=== PATIENT | female | born 1950 | race Caucasian/White ===

== ENCOUNTER 2017-06-14 07:01 | Day surgery (SDC) | payer BC, MEDICARE ==
[2017-06-07 09:00] VITALS: BMI 29.2
[~2017-06-14 07:01] MED LIST: LACTATED RINGERS 1,000 ML IV SCH; LIDOCAINE 1% 20 ML VIAL (10MG/ML) FOR IV START INTRADERMA PRN; MOXIFLOXACIN HCL 0.5% DROPS 3 ML BTL OP ONE; TETRACAINE 0.5% OPHTH (PF) DROPS 4 ML BTL OP ONE; TIMOLOL 0.5% OPHTH SOLN (PF) 0.2 ML DROPERETTE OP ONE
[2017-06-14] MEDS: CYCLOPENTOLATE 1% OPHTH SOLN 2 ML BTL OP ONE ×3 (07:27→07:40)
[2017-06-14] MEDS: PHENYLEPHRINE 2.5% OPHTH DRP 2ML OP NR ×3 (07:30→07:43)
[2017-06-14 07:31] VITALS: RESP 18; TEMP 98
[2017-06-14] MEDS ORDERED: BALANCED SALT IRRIG SOLN COMB2 15 ML IRRIG.SOLN INTRAOCULA ONE (08:15)
[2017-06-14] MEDS ORDERED: LIDOCAINE 1% (PF) 10MG/ML VIAL MISCELLANE ONE (08:15)
[2017-06-14] MEDS ORDERED: fentaNYL (PF) 50 MCG/ML 2 ML AMP ONE (08:22)
[2017-06-14] MEDS ORDERED: MIDAZOLAM 2 MG/2 ML VIAL ONE (08:22)
[2017-06-14] MEDS ORDERED: DUOVISC KIT (GREEN BOX) INTRAOCULA ONE (08:31)
[2017-06-14] MEDS ORDERED: EPINEPHrine (PF) 0.3 ML in BALANCED SALT IRRIG SOLN COMB2 500 ML IRRIGATION ONE (08:34)
--- NOTE | 2017-06-14 08:46 | P.OP ---
Date of Procedure: 06/14/17 Preoperative Diagnosis: NS & CS Postoperative Diagnosis: same Procedure(s) Performed: PIOL, OD Implants: PCB00 23.00 Anesthesia: MAC Surgeon: Rubén Sepulveda Estimated Blood Loss (ml): 0 Pathology: none sent Condition: stable Disposition: same day Indications for Procedure: blurry vision Operative Findings: no complications Description of Procedure:
[2017-06-14 09:15] VITALS: BP 117/75; PULSE 56
--- NOTE | 2017-06-15 09:59 | OP ---
DATE OF SERVICE: 06/14/2017 PROCEDURE: Phacoemulsification of cataract and intraocular lens implant of the right eye. PREOPERATIVE DIAGNOSIS: Nuclear sclerosis, cortical sclerosis. NARRATIVE: After obtaining the appropriate consent, the patient was brought to the Operating Room where the patient was placed under cardiac monitoring and prepped and draped in the usual sterile manner. At the 11 oclock position a 15 degree super sharp blade was used to create a paracentesis followed by instillation of 1% Xylocaine MPF 50:50 mix with BSS into the anterior chamber. This was followed by to stabilize the anterior chamber. At the 9 oclock position a self-sealing corneal flap incision was created using 2.8 mm marko keratome. A cystatome was used to initiate a continuous tear capsulorrhexis which was completed with the Utrata forceps. A Binkhorst cannula was used to hydrodissect the lens nucleus followed by hydrodelineation. Phacoemulsification of the lens was performed utilizing phacochop in 9.2 seconds at 14% power. The remaining cortical material was removed using the irrigation aspiration mode followed by additional 1% Xylocaine MPF into the anterior chamber followed by Duovisc viscoelastic to stabilize the capsular bag. An [id number] 23.0 Diopters posterior chamber lens was placed into the capsular bag without difficulty. The remaining viscoelastic material was removed from the anterior chamber with the irrigation/aspiration. Balanced salt solution was used to normalize the intraocular pressure. The incision was checked for watertight integrity. The patient then received two drops of 0.5% timolol followed by two drops Vigamox, was lightly patched and shielded in the usual manner. There were no complications from the procedure. The patient tolerated the procedure well and was returned to recovery in good condition. JOE
== END 2017-06-14 09:34 | disposition home or self-care (01) ==
LOC: OR 07:01
PROVIDERS: ATTEND Ophthalmology
DX: H25.11 Age-related nuclear cataract, right eye (principal); H25.011 Cortical age-related cataract, right eye; H52.03 Hypermetropia, bilateral; H52.223 Regular astigmatism, bilateral; H52.4 Presbyopia; I10 Essential (primary) hypertension; J45.909 Unspecified asthma, uncomplicated; Z85.07 Personal history of malignant neoplasm of pancreas
CPT/HCPCS: 66984; C1780; J2250; J0171; J3010; J2001

== ENCOUNTER 2017-07-05 09:12 | Day surgery (SDC) | payer MEDICARE ==
[2017-06-30 10:42] VITALS: BMI 29.2
[~2017-07-05 09:12] MED LIST changes: -LIDOCAINE 1% 20 ML VIAL (10MG/ML) FOR IV START INTRADERMA PRN
[2017-07-05] MEDS: CYCLOPENTOLATE 1% OPHTH SOLN 2 ML BTL OP ONE ×3 (10:10→10:22)
[2017-07-05] MEDS: PHENYLEPHRINE 2.5% OPHTH DRP 2ML OP NR ×3 (10:13→10:25)
[2017-07-05 10:42] VITALS: RESP 18; TEMP 98.8
[2017-07-05] MEDS ORDERED: fentaNYL (PF) 50 MCG/ML 2 ML AMP ONE (11:07)
[2017-07-05] MEDS ORDERED: MIDAZOLAM 2 MG/2 ML VIAL ONE (11:07)
[2017-07-05] MEDS ORDERED: EPINEPHrine (PF) 0.3 ML in BALANCED SALT IRRIG SOLN COMB2 500 ML IRRIGATION ONE (11:08)
[2017-07-05] MEDS ORDERED: HYALURONATE SODIUM INTRAOCULAR 1 EACH SYRINGE (12MG/ML) INTRAOCULA ONE (11:10)
[2017-07-05] MEDS ORDERED: BALANCED SALT IRRIG SOLN COMB2 15 ML IRRIG.SOLN INTRAOCULA ONE (11:10)
[2017-07-05] MEDS ORDERED: LIDOCAINE 1% (PF) 10MG/ML VIAL MISCELLANE ONE (11:11)
[2017-07-05] MEDS ORDERED: DUOVISC KIT (GREEN BOX) INTRAOCULA ONE (11:18)
[2017-07-05] MEDS ORDERED: FLUORESCEIN STRIPS 1 MG STRIP LEFT EYE ONE (11:29)
--- NOTE | 2017-07-05 11:39 | P.OP ---
Date of Procedure: 07/05/17 Preoperative Diagnosis: NS & CS Postoperative Diagnosis: same Procedure(s) Performed: PIOL, OS Implants: PCB00 23.50 Anesthesia: MAC Surgeon: Rubén Sepulveda Estimated Blood Loss (ml): 0 Pathology: none sent Condition: stable Disposition: same day Indications for Procedure: blurry vision Operative Findings: No complications Description of Procedure:
[2017-07-05 11:57] VITALS: BP 123/77; PULSE 65
--- NOTE | 2017-07-06 14:02 | OP ---
OPERATIVE REPORT Date of Surgery: DATE OF SURGERY: 05 July 2017 [employer]:: PREOPERATIVE DIAGNOSES:: 1. Nuclear sclerosis. 2. Cortical sclerosis. POSTOPERATIVE DIAGNOSIS:: Same. OPERATION:: Phacoemulsification of cataract and intraocular lens implant to the left eye. ESTIMATED BLOOD LOSS:: Zero. SPECIMEN TAKEN:: None. NARRATIVE:: After obtaining the appropriate consent, the patient was brought to the Operating Room where the patient was placed under cardiac monitoring and prepped and draped in the usual sterile manner. At the 5 o'clock position, a 15 degree super sharp blade was used to create a paracentesis followed by instillation of 1% Xylocaine MPF 50:50 mix with BSS into the anterior chamber. This was followed by Duovisc to stabilize the anterior chamber. At the 3 o'clock position, a self-sealing corneal flap incision was created using 2.8 mm marko keratome. A cystatome was used to initiate a continuous tear capsulorrhexis which was completed with the Utrata forceps. A Binkhorst cannula was used to hydrodissect the lens nucleus followed by hydrodelineation. Phacoemulsification of the lens was performed utilizing phacochop in 4.86 seconds at 9% power. The remaining cortical material was removed using the irrigation aspiration mode followed by additional 1% Xylocaine MPF into the anterior chamber followed by viscoelastic to stabilize the capsular bag. An TAINA PCB00 23.5 diopter posterior chamber lens was placed into the capsular bag without difficulty. The remaining viscoelastic material was removed from the anterior chamber with the irrigation/aspiration. Balanced salt solution was used to normalize the intraocular pressure. The incision was checked for watertight integrity. The patient then received two drops of 0.5% timolol followed by two drops Vigamox, was lightly patched and shielded in the usual manner. There were no complications from the procedure. The patient tolerated the procedure well and was returned to recovery in good condition. MMODL / IJN: [id number] /
== END 2017-07-05 12:14 | disposition home or self-care (01) ==
LOC: OR 09:12
PROVIDERS: ATTEND Ophthalmology
DX: H25.12 Age-related nuclear cataract, left eye (principal); H25.012 Cortical age-related cataract, left eye; H18.51 Endothelial corneal dystrophy; H52.03 Hypermetropia, bilateral; H52.223 Regular astigmatism, bilateral; H52.4 Presbyopia; Z96.1 Presence of intraocular lens; Z98.41 Cataract extraction status, right eye; I10 Essential (primary) hypertension; K21.9 Gastro-esophageal reflux disease without esophagitis; F32.9 Major depressive disorder, single episode, unspecified; J44.9 Chronic obstructive pulmonary disease, unspecified; Z87.891 Personal history of nicotine dependence; Z86.718 Personal history of other venous thrombosis and embolism; F39 Unspecified mood [affective] disorder; Z79.51 Long term (current) use of inhaled steroids; Z79.52 Long term (current) use of systemic steroids; Z79.899 Other long term (current) drug therapy; Z88.8 Allergy status to other drugs, medicaments and biological substances

== ENCOUNTER 2017-11-29 11:29 | Emergency (ER) | payer MEDICARE ==
--- NOTE | 2017-11-29 13:45 | ED ---
Fall HPI - General Chief Complaint: Fall Stated Complaint: FALL, HEAD AND ARM INJURY Time Seen by Provider: 11/29/17 13:09 Source: patient, RN notes reviewed Mode of arrival: ambulatory Limitations: no limitations - History of Present Illness Initial Comments: This is a 67 year old female who presents with a chief complaint of falling which resulted in hitting her head and right arm. The patient states she fell backward on a patch of ice and briefly saw "black dots" for a few seconds after the fall. She denies any bleeding, loss of consciousness, abrasions, or pain located elsewhere throughout the body. She states the pain is worse in her right arm when she moves it upward. At rest, the patient states her pain is 3/ 10. - Related Data Home Medications Medication Instructions Recorded Confirmed ALPRAZolam [Xanax] 0.25 mg PO DAILY PRN 06/07/17 11/29/17 Beclomethasone Dip 80 Mcg/Puff 2 puff INHALATION QAM 06/07/17 11/29/17 [Qvar 80 mcg] Cholecalciferol [Vitamin D3] 1,000 unit PO DAILY 06/07/17 11/29/17 Ibuprofen [Motrin] 600 mg PO Q6HR PRN 06/07/17 11/29/17 Losartan Potassium [Losartan 25 mg PO QAM 06/07/17 11/29/17 Potassium] Montelukast Sodium [Singulair] 10 mg PO QAM 06/07/17 11/29/17 Vitamin B Complex 1 each PO DAILY 06/07/17 11/29/17 diphenhydrAMINE [Benadryl] 12.5 - 25 mg PO HS PRN 06/30/17 11/29/17 Allergies Allergy/AdvReac Type Severity Reaction Status Date / Time meperidine [From Demerol] AdvReac Nausea & Verified 11/29/17 12:18 Vomiting theophylline AdvReac Rapid Verified 11/29/17 12:18 Heart Rate,N/V,headache Review of Systems ROS Statement: Those systems with pertinent positive or pertinent negative responses have been documented in the HPI. ROS Other: All systems not noted in ROS Statement are negative. Past Medical History Past Medical History: Asthma, Cancer, Deep Vein Thrombosis (DVT), Eye Disorder, GERD/Reflux, Hypertension Additional Past Medical History / Comment(s): Cataracts LT eye. Hx bronchitis. IBS. 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 History of Any Multi-Drug Resistant Organisms: None Reported Past Surgical History: Bladder Surgery, Section, Cholecystectomy, Hernia Repair Additional Past Surgical History / Comment(s): Bladder sling ,c sect x 3, ventral hernia repairs x 3, sinus surg, distal pancreatectomy and spleenectomy. EXC RT EYE CATARACT 06/14/17 Past Anesthesia/Blood Transfusion Reactions: Previous Problems w/ Anesthesia, Family History of Problems w/ Anesthesia Additional Past Anesthesia/Blood Transfusion Reaction / Comment(s): Sister N/V. ITCHING AND RASH AFTER EYE SURG 06/14/17 Past Psychological History: Anxiety, Depression Smoking Status: Former smoker Past Alcohol Use History: Rare Past Drug Use History: None Reported - Past Family History Mother Additional Family Medical History / Comment(s): heart valve disease- at age 75 Father Family Medical History: Cancer Additional Family Medical History / Comment(s): prostate CA- at age 65 General Exam Limitations: no limitations General appearance: alert, in no apparent distress Head exam: Present: atraumatic, normocephalic, normal inspection Eye exam: Present: normal appearance, PERRL, EOMI. Absent: scleral icterus, conjunctival injection, periorbital swelling Pupils: Present: normal accommodation Neck exam: Present: normal inspection. Absent: tenderness, meningismus, lymphadenopathy Extremities exam: Present: normal inspection (Tenderness in the right shoulder with active and resistive abduction. Neurovascular intact.), full ROM, normal capillary refill, other (Tenderness in the right shoulder with active and resistive abduction. Neurovascular intact.). Absent: tenderness, pedal edema, joint swelling, calf tenderness Back exam: Present: normal inspection Neurological exam: Present: alert, oriented X3, CN II-XII intact Psychiatric exam: Present: normal affect, normal mood Skin exam: Present: warm, dry, intact, normal color. Absent: rash Course Vital Signs 11/29/17 12:15 Temperature 97.5 F L Pulse Rate 82 Respiratory 18 Rate Blood Pressure 133/73 O2 Sat by Pulse 95 Oximetry Medical Decision Making - Medical Decision Making 67-year-old female presented for fall, head injury, right arm shoulder injury. Patient CT, x-rays were reviewed by radiologist no acute abnormality. Patient does have some discomfort with range of motion especially of both shoulder height the right. We discussed possibility of right rotator cuff strain. Patient will follow-up with primary care physician and or orthopedics if needed. Patient will take ibuprofen at home she was offered further pain medication though she declined. Disposition Clinical Impression: Fall, Head injury, Sprain of right rotator cuff capsule, initial encounter Disposition: HOME SELF-CARE Condition: Stable Instructions: Head Injury (ED) Additional Instructions: Please return to the Emergency Department if symptoms worsen or any other concerns. Referrals: Hayden Aviles MD [Primary Care Provider] - 1-2 days Michael Holguin MD [STAFF PHYSICIAN] - 1-2 days Time of Disposition: 14:42
--- NOTE | 2017-11-29 14:35 | XR ---
Right shoulder HISTORY: Pain 3 views of the right shoulder, comparison to prior exam 12/27/2011 Arthropathy present at the acromioclavicular joint. Alignment and bone mineralization are stable. Mil d spurring at the glenohumeral joint. Right lung apex as visualized is unremarkable. No fracture or d islocation. IMPRESSION: No acute fracture or dislocation
[2017-11-29 14:51] VITALS: BP 145/80; PULSE 81; RESP 20; TEMP 98
--- NOTE | 2017-11-29 15:35 | CT ---
EXAMINATION TYPE: CT brain erlin jo con DATE OF EXAM: 11/29/2017 COMPARISON: CT brain December 27, 2011 HISTORY: Patient fell today and hit back of head. Patient complains of posterior head pain. CT DLP: 1486 mGycm. Automated Exposure Control for Dose Reduction was Utilized. TECHNIQUE: CT scan of the head and cervical spine are performed without contrast. FINDINGS: There is no acute intracranial hemorrhage or midline shift identified. There is ventricul ar and sulcal prominence consistent with diffuse age-related cerebral atrophy. Slightly more prominen t CSF left of midline axial image 12 and coronal image 53 could reflect small arachnoid cyst in the p osterior fossa is unchanged from prior. The calvarium is intact. The globes are intact and the visual ized sinuses are clear. Cervical spine is visualized in its entirety from C1 through upper thoracic levels and demonstrates s traightened alignment without evidence of acute fracture or dislocation. Prevertebral soft tissue ap pears within normal limits. The C1-C2 articulation is within normal limits on the coronal images. Vertebral body heights are maintained. There is moderate to severe spurring and disc space narrowing C5-C6 and C6-C7 levels with posterior spur disc complexes effacing anterior thecal sac on sagittal im ages. Review of axial images shows left-sided uncovertebral facet degenerative changes C2-C3 and righ t-sided changes C4-C5. There is marginal spurring contributing to moderate left-sided neural foramina l narrowing C5-C6 level. Lung apices show mild apical scarring. Thyroid gland is not included in fiel d-of-view. IMPRESSION: 1. There is no acute fracture or dislocation evident in the cervical spine. 2. No acute intracranial hemorrhage or midline shift is seen. New mild diffuse age-related cerebral a trophy otherwise no significant change from prior.
== END 2017-11-29 14:49 | disposition home or self-care (01) ==
LOC: EC 11:29
DX: S43.421A Sprain of right rotator cuff capsule, initial encounter (principal); S09.90XA Unspecified injury of head, initial encounter; J45.909 Unspecified asthma, uncomplicated; I10 Essential (primary) hypertension; Z87.891 Personal history of nicotine dependence; Z85.07 Personal history of malignant neoplasm of pancreas; Z79.899 Other long term (current) drug therapy; Z79.51 Long term (current) use of inhaled steroids; Z88.5 Allergy status to narcotic agent; Z88.8 Allergy status to other drugs, medicaments and biological substances; W00.0XXA Fall on same level due to ice and snow, initial encounter; Y93.01 Activity, walking, marching and hiking; Y92.89 Other specified places as the place of occurrence of the external cause
CPT/HCPCS: 70450; 72125; 99284

== ENCOUNTER → 2018-01-02 | Outpatient (CLI) | payer MEDICARE ==
--- NOTE | 2018-01-03 11:16 | MM ---
Reason for exam: screening (asymptomatic). Last mammogram was performed 1 year and 11 months ago. History: Patient is postmenopausal and history of other cancer. Benign cyst aspiration of the right breast, 1992. Took hormonal contraceptives for 3 years beginning at age 26. Took estrogen for 3 months beginning at age 52. Physical Findings: A clinical breast exam by your physician is recommended on an annual basis and results should be correlated with mammographic findings. MG 3D Screening Mammo W/Cad Bilateral CC and MLO view(s) were taken. Prior study comparison: February 02, 2016, bilateral MG screening mammo w CAD. January 30, 2015, bilateral MG screening mammo w CAD. The breast tissue is heterogeneously dense. This may lower the sensitivity of mammography. Stable benign calcifications. There is no discrete abnormality. No significant changes when compared with prior studies. ASSESSMENT: Benign, BI-RAD 2 RECOMMENDATION: Routine screening mammogram of both breasts in 1 year.
== END | disposition home or self-care (01) ==
LOC: RADMAMWWP 10:40
PROVIDERS: ATTEND Internal Medicine
DX: Z12.31 Encounter for screening mammogram for malignant neoplasm of breast (principal)
CPT/HCPCS: 77063; 77067

== ENCOUNTER → 2018-05-22 | Outpatient (CLI) | payer MEDICARE ==
[2018-05-22 13:16] LABS: C Reactive Protein 6.8 mg/L (<10.0); Uric Acid 2.8 mg/dL (3.7-7.4)
[2018-05-22 17:59] LABS: Rheumatoid Factor 219 IU/mL (0-15)
[2018-05-22 19:16] LABS: Cyclic Citrullinated Pep IgG POSITIVE (NEGATIVE)
== END | disposition home or self-care (01) ==
LOC: LABWHC1 11:44
PROVIDERS: ATTEND Internal Medicine
DX: M19.90 Unspecified osteoarthritis, unspecified site (principal)
CPT/HCPCS: 36415; 84550; 85652; 86140; 86200; 86431; 86618

== ENCOUNTER → 2018-11-26 | Outpatient (CLI) | payer MEDICARE ==
--- NOTE | 2018-11-26 18:24 | BD ---
EXAMINATION TYPE: Axial Bone Density DATE OF EXAM: 11/26/2018 COMPARISON: NONE CLINICAL HISTORY: 68-year-old female screening for osteoporosis Height: 5 FT 4 IN Weight: 163 FRAX RISK QUESTIONS: History of Fracture in Adulthood: YES Secondary Osteoporosis: Rheumatoid Arthritis: YES RISK FACTORS HISTORY OF: Active: YES Postmenopausal woman: AGE 49-50 Take estrogen and/or progesterone medications: VERY BRIEFLY MEDICATIONS: Prednisone or other steroids: FOR ASTHMA How Lon MONTHS Additional Medications: SINGULAIR, LOSARTIN, CYMBALTA,QVAR INHALER, IBUPROFEN, METHOTREXATE, ALBUTERO L PRN,UPDRAFTS PRN, FOLIC ACID Additional History: EXAM MEASUREMENTS: Bone mineral densitometry was performed using the [employer]. Bone mineral density as measured about the Lumbar spine is: ----- L1-L4(G/cm2): 1.170 T Score Values are as follows: ----- L2: 0.3 ----- L3: 0.0 ----- L4: -0.6 ----- L1-L4: -0.1 Bone mineral density has: INCREASED 3.6 % SINCE STUDY OF 2015 Bone mineral density about the R hip (g/cm2): 0.855 Bone mineral density about the L hip (g/cm2): 0.901 T Score values are as follows: -----R Neck: -1.3 -----L Neck: -1.0 -----R Total: -0.5 -----L Total: -0.6 Bone mineral density has: INCREASED 0.9% SINCE STUDY OF 2015 IMPRESSION: Osteopenia (T Score between -2.5 and -1). There is slightly increased risk of fracture and the patient may be considered for treatment. Re-Screen 2-5 years. NOTE: T-SCORE=SD OF THE YOUNG ADULT MEAN.
== END ==
LOC: RADBDWWP 12:58
PROVIDERS: ATTEND Internal Medicine Rheumatology
DX: M85.80 Other specified disorders of bone density and structure, unspecified site (principal)
CPT/HCPCS: 77080

== ENCOUNTER 2019-06-07 18:22 | Emergency (ER) | payer MEDICARE ==
[2019-06-07] MEDS ORDERED: SODIUM CHLORIDE 0.9% 1,000 ML IV STA (18:55)
--- NOTE | 2019-06-07 19:04 | ED ---
General Adult HPI - General Chief complaint: Dizziness Stated complaint: lightheaded/nausea/jaw pain Time Seen by Provider: 06/07/19 18:46 Source: patient Mode of arrival: ambulatory Limitations: no limitations - History of Present Illness Initial comments: 69-year-old female patient presents to the emergency department today for evaluation of multiple symptoms. Patient states she has been experiencing fatigue, dizziness, intermittent chest tightness, and nausea. Patient states his been going on for the last couple of weeks. She states that all symptoms are intermittent however the fatigue seems to be the most pressing. States that she could sleep all day. Patient did start taking Keppra in April and was concerned it may be a side effect of the medication but nothing seemed to be worsening. Patient states 5 episodes where she feels like her heart is pounding. States that her chest becomes tight, tenderness or radiate up into her neck and jaw. Patient states that she has intermittent nausea but she is able to eat. States that she has decreased appetite. Patient does report diarrhea on a daily basis. States she has 2-3 episodes per day. Denies any hematochezia or melena. She is reporting intermittent mild headaches and blurred vision. There are no exacerbating or relieving factors to her symptoms. Patient denies any recent rash, fever, chills, vomiting, diarrhea, back pain, numbness, tingling, hematuria, dysuria, urinary urgency, urinary frequency, or any other complaints. - Related Data Home Medications Medication Instructions Recorded Confirmed ALPRAZolam [Xanax] 0.25 mg PO DAILY PRN 06/07/17 11/29/17 Beclomethasone Dip 80 Mcg/Puff 2 puff INHALATION QAM 06/07/17 11/29/17 [Qvar 80 mcg] Cholecalciferol [Vitamin D3] 1,000 unit PO DAILY 06/07/17 11/29/17 Ibuprofen [Motrin] 600 mg PO Q6HR PRN 06/07/17 11/29/17 Losartan Potassium 25 mg PO QAM 06/07/17 11/29/17 Montelukast Sodium [Singulair] 10 mg PO QAM 06/07/17 11/29/17 Vitamin B Complex 1 each PO DAILY 06/07/17 11/29/17 diphenhydrAMINE [Benadryl] 12.5 - 25 mg PO HS PRN 06/30/17 11/29/17 Allergies Allergy/AdvReac Type Severity Reaction Status Date / Time meperidine [From Demerol] AdvReac Nausea & Verified 06/07/19 18:37 Vomiting theophylline AdvReac Rapid Verified 06/07/19 18:37 Heart Rate,N/V,headache Review of Systems ROS Statement: Those systems with pertinent positive or pertinent negative responses have been documented in the HPI. ROS Other: All systems not noted in ROS Statement are negative. Past Medical History Past Medical History: Asthma, Cancer, Deep Vein Thrombosis (DVT), Eye Disorder, GERD/Reflux, Hypertension, Rheumatoid Arthritis (RA), Seizure Disorder Additional Past Medical History / Comment(s): Cataracts LT eye. Hx bronchitis. IBS. 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 History of Any Multi-Drug Resistant Organisms: None Reported Past Surgical History: Bladder Surgery, Section, Cholecystectomy, Hernia Repair Additional Past Surgical History / Comment(s): Bladder sling ,c sect x 3, ventral hernia repairs x 3, sinus surg, distal pancreatectomy and spleenectomy. EXC RT EYE CATARACT 06/14/17 Past Anesthesia/Blood Transfusion Reactions: Previous Problems w/ Anesthesia, Family History of Problems w/ Anesthesia Additional Past Anesthesia/Blood Transfusion Reaction / Comment(s): Sister N/V. ITCHING AND RASH AFTER EYE SURG 06/14/17 Past Psychological History: Anxiety, Depression Smoking Status: Former smoker Past Alcohol Use History: Rare Past Drug Use History: None Reported - Past Family History Mother Additional Family Medical History / Comment(s): heart valve disease- at age 75 Father Family Medical History: Cancer Additional Family Medical History / Comment(s): prostate CA- at age 65 General Exam Limitations: no limitations General appearance: alert, other (Physical well-developed, well-nourished adult female patient in no acute distress. Vital signs upon presentation are temperature 98.7F, pulse 89, respirations 18, blood pressure 121/76, pulse ox 96% on room air.) Eye exam: Present: normal appearance, PERRL, EOMI. Absent: scleral icterus, conjunctival injection, nystagmus, periorbital swelling ENT exam: Present: normal exam, normal oropharynx, mucous membranes moist Respiratory exam: Present: normal lung sounds bilaterally. Absent: respiratory distress, wheezes, rales, rhonchi, stridor Cardiovascular Exam: Present: regular rate, normal rhythm, normal heart sounds. Absent: systolic murmur, diastolic murmur, rubs, gallop, clicks GI/Abdominal exam: Present: soft, normal bowel sounds. Absent: distended, tenderness, guarding, rebound, rigid Neurological exam: Present: alert, oriented X3, CN II-XII intact, other (Strength in all 4 extremities is 5/5.) Psychiatric exam: Present: normal affect, normal mood Skin exam: Present: warm, dry, intact, normal color. Absent: rash Course Vital Signs 06/07/19 06/07/19 06/07/19 18:37 19:30 21:00 Temperature 98.7 F Pulse Rate 89 75 76 Respiratory 18 18 19 Rate Blood Pressure 121/76 125/84 128/91 O2 Sat by Pulse 96 94 L 94 L Oximetry 06/07/19 22:24 Temperature 98.3 F Pulse Rate 77 Respiratory 18 Rate Blood Pressure 133/90 O2 Sat by Pulse 95 Oximetry EKG Findings - EKG Comments: EKG Findings:: EKG obtained in 191 shows normal sinus rhythm with a ventricular rate is 77, UT interval 152, QRS duration 90, QT 370, QTC 418. No evidence of ST elevation or depression Medical Decision Making - Medical Decision Making 69-year-old female patient percents into the emergency department today for evaluation of intermittent chest tightness, dizziness, and fatigue over the last 2-3 weeks. Physical examination is unremarkable. She is neurologically intact with no focal deficits. She denied urinary symptoms. Labs reviewed and did reveal elevated BUN at 20. Elevated TSH of 5.040, urinalysis shows trace protein, moderate leukocyte esterase, 13 white blood cells, and rare mucous. This has been sent for culture. Chest x-ray showed atelectasis. I did discuss findings and results with the patient's. Given duration of symptoms and relatively unremarkable lab findings we'll discharge patient home to follow-up with her primary care physician. She should follow-up in one to 2 days. Return parameters were discussed in detail. She verbalizes understanding and agrees with this plan. - Lab Data Result diagrams: 06/07/19 19:47 06/07/19 19:47 Lab Results 06/07/19 06/07/19 06/07/19 Range/Units 19:47 19:47 19:47 WBC 8.7 (3.8-10.6) k/uL RBC 4.69 (3.80-5.40) m/uL Hgb 14.2 (11.4-16.0) gm/dL Hct 43.3 (34.0-46.0) % MCV 92.5 (80.0-100.0) fL MCH 30.3 (25.0-35.0) pg MCHC 32.8 (31.0-37.0) g/dL RDW 15.3 (11.5-15.5) % Plt Count 451 H (150-450) k/uL Neutrophils % 39 % Lymphocytes % 49 % Monocytes % 5 % Eosinophils % 4 % Basophils % 1 % Neutrophils # 3.4 (1.3-7.7) k/uL Lymphocytes # 4.3 (1.0-4.8) k/uL Monocytes # 0.4 (0-1.0) k/uL Eosinophils # 0.3 (0-0.7) k/uL Basophils # 0.1 (0-0.2) k/uL Sodium 138 (137-145) mmol/L Potassium 4.4 (3.5-5.1) mmol/L Chloride 103 (98-107) mmol/L Carbon Dioxide 26 (22-30) mmol/L Anion Gap 9 mmol/L BUN 20 H (7-17) mg/dL Creatinine 0.49 L (0.52-1.04) mg/dL Est GFR (CKD-EPI)AfAm >90 (>60 ml/min/1.73 sqM) Est GFR (CKD-EPI)NonAf >90 (>60 ml/min/1.73 sqM) Glucose 96 (74-99) mg/dL Calcium 9.5 (8.4-10.2) mg/dL Magnesium 2.2 (1.6-2.3) mg/dL Total Bilirubin 0.6 (0.2-1.3) mg/dL AST 26 (14-36) U/L ALT 21 (9-52) U/L Alkaline Phosphatase 66 (38-126) U/L Troponin I <0.012 (0.000-0.034) ng/mL Total Protein 7.1 (6.3-8.2) g/dL Albumin 4.2 (3.5-5.0) g/dL TSH 5.040 H (0.465-4.680) mIU/L Free T4 0.88 (0.78-2.19) ng/dL Urine Color Urine Appearance (Clear) Urine pH (5.0-8.0) Ur Specific [place] (1.001-1.035) Urine Protein (Negative) Urine Glucose (UA) (Negative) Urine Ketones (Negative) Urine Blood (Negative) Urine Nitrite (Negative) Urine Bilirubin (Negative) Urine Urobilinogen (<2.0) mg/dL Ur Leukocyte Esterase (Negative) Urine RBC (0-5) /hpf Urine WBC (0-5) /hpf Ur Squamous Epith Cells (0-4) /hpf Urine Mucus (None) /hpf 06/07/19 Range/Units 20:29 WBC (3.8-10.6) k/uL RBC (3.80-5.40) m/uL Hgb (11.4-16.0) gm/dL Hct (34.0-46.0) % MCV (80.0-100.0) fL MCH (25.0-35.0) pg MCHC (31.0-37.0) g/dL RDW (11.5-15.5) % Plt Count (150-450) k/uL Neutrophils % % Lymphocytes % % Monocytes % % Eosinophils % % Basophils % % Neutrophils # (1.3-7.7) k/uL Lymphocytes # (1.0-4.8) k/uL Monocytes # (0-1.0) k/uL Eosinophils # (0-0.7) k/uL Basophils # (0-0.2) k/uL Sodium (137-145) mmol/L Potassium (3.5-5.1) mmol/L Chloride (98-107) mmol/L Carbon Dioxide (22-30) mmol/L Anion Gap mmol/L BUN (7-17) mg/dL Creatinine (0.52-1.04) mg/dL Est GFR (CKD-EPI)AfAm (>60 ml/min/1.73 sqM) Est GFR (CKD-EPI)NonAf (>60 ml/min/1.73 sqM) Glucose (74-99) mg/dL Calcium (8.4-10.2) mg/dL Magnesium (1.6-2.3) mg/dL Total Bilirubin (0.2-1.3) mg/dL AST (14-36) U/L ALT (9-52) U/L Alkaline Phosphatase (38-126) U/L Troponin I (0.000-0.034) ng/mL Total Protein (6.3-8.2) g/dL Albumin (3.5-5.0) g/dL TSH (0.465-4.680) mIU/L Free T4 (0.78-2.19) ng/dL Urine Color Yellow Urine Appearance Clear (Clear) Urine pH 7.0 (5.0-8.0) Ur Specific [place] 1.012 (1.001-1.035) Urine Protein Trace H (Negative) Urine Glucose (UA) Negative (Negative) Urine Ketones Negative (Negative) Urine Blood Negative (Negative) Urine Nitrite Negative (Negative) Urine Bilirubin Negative (Negative) Urine Urobilinogen <2.0 (<2.0) mg/dL Ur Leukocyte Esterase Moderate H (Negative) Urine RBC 1 (0-5) /hpf Urine WBC 13 H (0-5) /hpf Ur Squamous Epith Cells <1 (0-4) /hpf Urine Mucus Rare H (None) /hpf - Radiology Data Radiology results: report reviewed, image reviewed Two-view x-ray of the chest is obtained. Report was reviewed in its entirety. Impression by Dr. Maloney shows minimal right infrahilar left probable subsegmental atelectasis. Radiographic sequela of COPD. Disposition Clinical Impression: Fatigue, Chest tightness Disposition: HOME SELF-CARE Condition: Good Instructions (If sedation given, give patient instructions): Chest Pain (ED), Acute Nausea and Vomiting (ED), Fatigue (ED) Additional Instructions: Follow-up with your primary care physician for recheck in 1-2 days. Discussed possible referral to cardiology for echocardiogram. Follow-up with your it architecture consultant for repeat testing on your stomach. Return to the emergency department immediately for any new, worsening, or concerning symptoms. Is patient prescribed a controlled substance at d/c from ED?: No Referrals: Rachael Walter MD [Primary Care Provider] - 1-2 days Time of Disposition: 22:09
[2019-06-07 19:57] LABS: Basophils # (A) 0.1 k/uL (0-0.2); Basophils % (A) 1 %; Eosinophils # (A) 0.3 k/uL (0-0.7); Eosinophils % (A) 4 %; HCT 43.3 % (34.0-46.0); HGB 14.2 gm/dL (11.4-16.0); Lymphocytes # (A) 4.3 k/uL (1.0-4.8); Lymphocytes % (A) 49 %; MCH 30.3 pg (25.0-35.0); MCHC 32.8 g/dL (31.0-37.0); MCV 92.5 fL (80.0-100.0); Mean Platelet Volume 7.9; Monocytes # (A) 0.4 k/uL (0-1.0); Monocytes % (A) 5 %; Neutrophils # (A) 3.4 k/uL (1.3-7.7); Neutrophils % (A) 39 %; Platelet Count 451 k/uL (150-450); RBC 4.69 m/uL (3.80-5.40); RDW 15.3 % (11.5-15.5); WBC 8.7 k/uL (3.8-10.6)
--- NOTE | 2019-06-07 20:05 | XR ---
EXAMINATION TYPE: XR chest 2V DATE OF EXAM: 06/07/2019 COMPARISON: NONE HISTORY: Chest pain and palpitations TECHNIQUE: Frontal and lateral views of the chest are obtained. FINDINGS: There is no focal air space opacity, pleural effusion, or pneumothorax seen. Flattening o f the diaphragms and pulmonary hyperinflation relates underlying COPD. Right infrahilar and left basi lar probable linear atelectasis seen on the frontal view only. The cardiac silhouette size is within normal limits. The osseous structures are intact. Cholecystectomy clips are seen. Minimal degenerat efren changes of the spine. Mild diffuse osseous demineralization. IMPRESSION: Minimal right infrahilar and left basilar probable subsegmental atelectasis. Radiographi c sequela of COPD.
[2019-06-07 20:08] LABS: ALT 21 U/L (9-52); AST 26 U/L (14-36); African American GFR (CKD) >90 (>60 ml/min/1.73 sqM); Albumin 4.2 g/dL (3.5-5.0); Alkaline Phosphatase 66 U/L (38-126); Anion Gap 9 mmol/L; Blood Urea Nitrogen 20 mg/dL (7-17); Calcium 9.5 mg/dL (8.4-10.2); Carbon Dioxide 26 mmol/L (22-30); Chloride 103 mmol/L (98-107); Glucose 96 mg/dL (74-99); Magnesium 2.2 mg/dL (1.6-2.3); Potassium 4.4 mmol/L (3.5-5.1); Sodium 138 mmol/L (137-145); Total Bilirubin 0.6 mg/dL (0.2-1.3); Total Protein 7.1 g/dL (6.3-8.2)
[2019-06-07 20:42] LABS: Appearance,Urine Clear (Clear); Bilirubin,Urine Negative (Negative); Blood,Urine Negative (Negative); Color,Urine Yellow; Glucose,Urine (UA) Negative (Negative); Ketones,Urine Negative (Negative); Leukocyte Esterase,Urine Moderate (Negative); Mucus,Urine Rare /hpf; Nitrite,Urine Negative (Negative); Protein,Urine Trace (Negative); RBC,Urine 1 /hpf (0-5); Specific Gravity,Urine 1.012 (1.001-1.035); Squamous Epithelial Cell,Urine <1 /hpf (0-4); Urobilinogen,Urine <2.0 mg/dL (<2.0); WBC,Urine 13 /hpf (0-5)
[2019-06-07 21:13] LABS: T4, Free (Free Thyroxine) 0.88 ng/dL (0.78-2.19)
[2019-06-07 22:28] VITALS: BP 133/90; PULSE 77; RESP 18; TEMP 98.3
== END 2019-06-07 22:28 | disposition home or self-care (01) ==
LOC: EC 18:22
DX: R07.89 Other chest pain (principal); R53.83 Other fatigue; R79.89 Other specified abnormal findings of blood chemistry; R94.6 Abnormal results of thyroid function studies; R80.9 Proteinuria, unspecified; R82.998 Other abnormal findings in urine; J98.11 Atelectasis; R42 Dizziness and giddiness; R11.0 Nausea; R40.0 Somnolence; R63.8 Other symptoms and signs concerning food and fluid intake; R19.7 Diarrhea, unspecified; R51 Headache; H53.8 Other visual disturbances; J45.909 Unspecified asthma, uncomplicated; I10 Essential (primary) hypertension; Z80.42 Family history of malignant neoplasm of prostate; Z82.49 Family history of ischemic heart disease and other diseases of the circulatory system; Z87.891 Personal history of nicotine dependence; Z88.5 Allergy status to narcotic agent; Z88.8 Allergy status to other drugs, medicaments and biological substances; Z79.51 Long term (current) use of inhaled steroids; Z79.899 Other long term (current) drug therapy; Z85.07 Personal history of malignant neoplasm of pancreas; Z92.21 Personal history of antineoplastic chemotherapy; Z90.410 Acquired total absence of pancreas; Z90.81 Acquired absence of spleen
CPT/HCPCS: 36415; 71046; 80053; 80177; 81001; 83735; 84439; 84443; 84484; 85025; 93005; 96360; 96361; 99284

== ENCOUNTER → 2019-08-30 | Day surgery (SDC) | payer MEDICARE ==
[2019-08-28 12:21] VITALS: BMI 27.8
[~2019-08-30] MED LIST changes: +LIDOCAINE 1% 20 ML VIAL (10MG/ML) FOR IV START INTRADERMA PRN; +LIDOCAINE 1% INJ 10MG/ML (20 ML MDV) ONE; -MOXIFLOXACIN HCL 0.5% DROPS 3 ML BTL OP ONE; +PROPOFOL 10 MG/ML 20 ML VIAL IV ONE; -TETRACAINE 0.5% OPHTH (PF) DROPS 4 ML BTL OP ONE; -TIMOLOL 0.5% OPHTH SOLN (PF) 0.2 ML DROPERETTE OP ONE
[2019-08-30 11:03] VITALS: RESP 16; TEMP 98.3
--- NOTE | 2019-08-30 11:46 | P.GSHP ---
History of Present Illness H&P Date: 08/30/19 Chief Complaint: GERD, gastric nodule 69-year-old female underwent upper endoscopy about 6 months ago. This was being performed because of symptoms of reflux. She is found have a gastric nodule. This was performed by Dr. Gottlieb at [facility]. She is not aware of any biopsies. She was told to have a follow-up in 6 months. History of previous distal pancreatectomy for cancer. Underwent resection followed by adjuvant chemotherapy at [facility]. Otherwise feels well. Last CAT scan 6 months ago. Past Medical History Past Medical History: Asthma, Cancer, Deep Vein Thrombosis (DVT), Eye Disorder, GERD/Reflux, Hypertension, Rheumatoid Arthritis (RA), Seizure Disorder Additional Past Medical History / Comment(s): steroid dose pack Jul 2019,focal seizures. Hx bronchitis. IBS. 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 History of Any Multi-Drug Resistant Organisms: None Reported Past Surgical History: Bladder Surgery, Section, Cholecystectomy, Hernia Repair Additional Past Surgical History / Comment(s): EGD,colonoscopy,Bladder sling ,c sect x 3, ventral hernia repairs x 3, sinus surg, distal pancreatectomy and spleenectomy.nadine CATARACT Past Anesthesia/Blood Transfusion Reactions: Previous Problems w/ Anesthesia, Family History of Problems w/ Anesthesia Additional Past Anesthesia/Blood Transfusion Reaction / Comment(s): Sister N/V. ITCHING AND RASH AFTER EYE SURG 06/14/17.no problems with prior blood transfusions Smoking Status: Former smoker - Past Family History Mother Additional Family Medical History / Comment(s): heart valve disease- at age 75 Father Family Medical History: Cancer Additional Family Medical History / Comment(s): prostate CA- at age 65 Medications and Allergies Home Medications Medication Instructions Recorded Confirmed Type ALPRAZolam [Xanax] 0.25 mg PO DAILY PRN 06/07/17 08/30/19 History Beclomethasone Dip 80 Mcg/Puff 2 puff INHALATION QAM 06/07/17 08/30/19 History [Qvar 80 mcg] Ibuprofen [Motrin] 600 mg PO Q6HR PRN 06/07/17 08/30/19 History Losartan Potassium 50 mg PO QAM 06/07/17 08/30/19 History Montelukast Sodium [Singulair] 10 mg PO HS 06/07/17 08/30/19 History Acetaminophen [Tylenol Arthritis] 650 mg PO Q8H PRN 08/28/19 08/30/19 History Albuterol Inhaler [Ventolin Hfa 1 - 2 puff INHALATION RT-Q6H PRN 08/28/19 08/30/19 History Inhaler] Baclofen [Lioresal] 10 mg PO BID 08/28/19 08/30/19 History DULoxetine HCL [Cymbalta] 60 mg PO QAM 08/28/19 08/30/19 History Magnesium 250 mg PO HS 08/28/19 08/30/19 History Turmeric Root Extract [Turmeric] 500 mg PO DAILY 08/28/19 08/30/19 History levETIRAcetam [Keppra] 500 mg PO BID 08/28/19 08/30/19 History Allergies Allergy/AdvReac Type Severity Reaction Status Date / Time theophylline Allergy Rapid Verified 08/30/19 11:04 Heart Rate,N/V,headache meperidine [From Demerol] AdvReac Nausea & Verified 08/30/19 11:04 Vomiting Surgical - Exam Vital Signs Temp Pulse Resp BP Pulse Ox 98.3 F 69 16 119/74 95 08/30/19 11:02 08/30/19 11:02 08/30/19 11:02 08/30/19 11:02 08/30/19 11:02 Physical exam: General: Well-developed, well-nourished HEENT: Normocephalic, sclerae nonicteric Abdomen: Nontender, nondistended Extremities: No edema Neuro: Alert and oriented Assessment and Plan (1) Gastric nodule Narrative/Plan: Will proceed with upper endoscopy at this time. Current Visit: Yes Status: Acute Code(s): K31.89 - OTHER DISEASES OF STOMACH AND DUODENUM SNOMED Code(s): 507275452
--- NOTE | 2019-08-30 11:56 | P.PCN ---
Date of Procedure: 08/30/19 Procedure(s) Performed: Preoperative Dx: Gastric nodule, GERD Postoperative Dx: Gastric polyps, possible gastric nodule Procedure: EGD with Bx Anesthesia: Sedation Endoscopist: Dr. Sibley Specimens: Antral nodule, gastric polyp Endoscopic Procedure: The patient was on the endoscopy table in the left decubitus position. The Olympus gastroscope was inserted into the oropharynx and passed under direct visualization to the region of the third portion of the duodenum. From that point the scope was slowly withdrawn inspecting all surfaces carefully. There were no neoplastic inflammatory or polypoid lesions throughout the duodenum. The pylorus was widely patent. The stomach was carefully inspected. There was a prominent fold in the antrum. A very small superficial erosion was present there. This almost had the appearance of a small less than 1 cm nodule. A biopsy was taken of this area. This may have been what was previously identified. The patient also had small polyps in the stomach. One of the larger polyps were sampled. Retroflexion revealed a normal hiatus. The esophagus was then carefully examined. There were no neoplastic inflammatory or polypoid lesions throughout the visualized esophagus. The patient was then taken to the recovery room in stable condition per anesthesia guidelines. Recommendations: Fairly unimpressive endoscopic findings. Await biopsy results. If biopsies are benign would not recommend routine follow-up.
[2019-08-30 12:33] VITALS: BP 125/79; PULSE 66
== END ==
LOC: ORWHC2ENDO 10:45
PROVIDERS: ATTEND Surgery
DX: K29.50 Unspecified chronic gastritis without bleeding (principal); K31.7 Polyp of stomach and duodenum; K21.9 Gastro-esophageal reflux disease without esophagitis; I10 Essential (primary) hypertension; M06.9 Rheumatoid arthritis, unspecified; G40.909 Epilepsy, unspecified, not intractable, without status epilepticus; K58.9 Irritable bowel syndrome, unspecified; J45.909 Unspecified asthma, uncomplicated; Z86.718 Personal history of other venous thrombosis and embolism; Z87.09 Personal history of other diseases of the respiratory system; Z90.49 Acquired absence of other specified parts of digestive tract; Z90.410 Acquired total absence of pancreas; Z90.81 Acquired absence of spleen; Z98.49 Cataract extraction status, unspecified eye; Z85.07 Personal history of malignant neoplasm of pancreas; Z92.21 Personal history of antineoplastic chemotherapy; Z87.891 Personal history of nicotine dependence; Z84.89 Family history of other specified conditions; Z80.42 Family history of malignant neoplasm of prostate; Z79.51 Long term (current) use of inhaled steroids; Z79.899 Other long term (current) drug therapy; Z88.5 Allergy status to narcotic agent; Z88.8 Allergy status to other drugs, medicaments and biological substances
CPT/HCPCS: 88305; 43239; J2001; J2704

== ENCOUNTER 2019-12-05 17:29 | Emergency (ER) | payer MEDICARE ==
--- NOTE | 2019-12-05 19:07 | ED ---
General Adult HPI - General Chief complaint: Skin/Abscess/Foreign Body Stated complaint: L Leg Pain Time Seen by Provider: 12/05/19 18:01 Source: patient Mode of arrival: ambulatory Limitations: no limitations - History of Present Illness Initial comments: 69-year-old female patient presents to the emergency department today for evaluation of pain, swelling, redness to the left medial ankle. Patient states this started a couple of days ago has been worsening. States it is causing pain down into her foot. She denies any fever or chills with this. Denies any known injury. Patient does have history of DVT after surgical procedure. She is not currently taking any anticoagulants or antiplatelet medications. States that she does occasionally have some numbness and tingling to the foot however this is usually related to her rheumatoid arthritis. Patient denies any recent rash, shortness breath, chest pain, palpitations, abdominal pain, nausea, vomiting, diarrhea, constipation, back pain, numbness, tingling, dizziness, weakness, hematuria, dysuria, urinary urgency, urinary frequency, headache, visual changes, or any other complaints. - Related Data Home Medications Medication Instructions Recorded Confirmed ALPRAZolam [Xanax] 0.25 mg PO DAILY PRN 06/07/17 08/30/19 Beclomethasone Dip 80 Mcg/Puff 2 puff INHALATION QAM 06/07/17 08/30/19 [Qvar 80 mcg] Ibuprofen [Motrin] 600 mg PO Q6HR PRN 06/07/17 08/30/19 Losartan Potassium 50 mg PO QAM 06/07/17 08/30/19 Montelukast Sodium [Singulair] 10 mg PO HS 06/07/17 08/30/19 Acetaminophen [Tylenol Arthritis] 650 mg PO Q8H PRN 08/28/19 08/30/19 Albuterol Inhaler [Ventolin Hfa 1 - 2 puff INHALATION RT-Q6H PRN 08/28/19 08/30/19 Inhaler] Baclofen [Lioresal] 10 mg PO BID 08/28/19 08/30/19 DULoxetine HCL [Cymbalta] 60 mg PO QAM 08/28/19 08/30/19 Magnesium 250 mg PO HS 08/28/19 08/30/19 Turmeric Root Extract [Turmeric] 500 mg PO DAILY 08/28/19 08/30/19 levETIRAcetam [Keppra] 500 mg PO BID 08/28/19 08/30/19 Previous Rx's Medication Instructions Recorded Apixaban [Eliquis Starter Pack 0 mg PO DIRECTED 30 Days #1 pack 12/05/19 (for VTE)] Allergies Allergy/AdvReac Type Severity Reaction Status Date / Time theophylline Allergy Rapid Verified 12/05/19 17:52 Heart Rate,N/V,headache meperidine [From Demerol] AdvReac Nausea & Verified 12/05/19 17:52 Vomiting Review of Systems ROS Statement: Those systems with pertinent positive or pertinent negative responses have been documented in the HPI. ROS Other: All systems not noted in ROS Statement are negative. Past Medical History Past Medical History: Asthma, Cancer, Deep Vein Thrombosis (DVT), Eye Disorder, GERD/Reflux, Hypertension, Rheumatoid Arthritis (RA), Seizure Disorder Additional Past Medical History / Comment(s): steroid dose pack Jul 2019,focal seizures. Hx bronchitis. IBS. 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 History of Any Multi-Drug Resistant Organisms: None Reported Past Surgical History: Bladder Surgery, Section, Cholecystectomy, Hernia Repair Additional Past Surgical History / Comment(s): EGD,colonoscopy,Bladder sling ,c sect x 3, ventral hernia repairs x 3, sinus surg, distal pancreatectomy and spleenectomy.nadine CATARACT Past Anesthesia/Blood Transfusion Reactions: Previous Problems w/ Anesthesia, Family History of Problems w/ Anesthesia Additional Past Anesthesia/Blood Transfusion Reaction / Comment(s): Sister N/V. ITCHING AND RASH AFTER EYE SURG 06/14/17.no problems with prior blood transfusions Past Psychological History: Anxiety, Depression Smoking Status: Former smoker Past Alcohol Use History: None Reported Past Drug Use History: None Reported - Past Family History Mother Additional Family Medical History / Comment(s): heart valve disease- at age 75 Father Family Medical History: Cancer Additional Family Medical History / Comment(s): prostate CA- at age 65 General Exam Limitations: no limitations General appearance: alert, in no apparent distress, other (Physical well- developed, well-nourished adult female patient in no acute distress. Vital signs upon presentation are temperature 98.2F, pulse 77, respirations 20, blood pressure 136/76, pulse ox 99% on room air.) Eye exam: Present: normal appearance, PERRL, EOMI. Absent: scleral icterus, conjunctival injection, periorbital swelling ENT exam: Present: normal exam, normal oropharynx, mucous membranes moist Respiratory exam: Present: normal lung sounds bilaterally. Absent: respiratory distress, wheezes, rales, rhonchi, stridor Cardiovascular Exam: Present: regular rate, normal rhythm, normal heart sounds. Absent: systolic murmur, diastolic murmur, rubs, gallop, clicks Extremities exam: Present: full ROM, normal capillary refill, other (There is linear area of erythema and swelling noted to the left medial ankle. There is tenderness over the site. Skin is warm to touch. Skin is otherwise pink, warm, dry. Cap refills less than 3 seconds. Pedal and posttibial pulses 2+ and equal bilaterally.). Absent: tenderness, pedal edema, joint swelling, calf tenderness Neurological exam: Present: alert, oriented X3, CN II-XII intact Psychiatric exam: Present: normal affect, normal mood Skin exam: Present: warm, dry, intact, normal color. Absent: rash Course Vital Signs 12/05/19 17:49 Temperature 98.2 F Pulse Rate 77 Respiratory 20 Rate Blood Pressure 136/76 O2 Sat by Pulse 99 Oximetry Medical Decision Making - Medical Decision Making 69-year-old female patient presents to the emergency department today for evaluation of pain, swelling, redness to the medial calf and ankle. Patient states his been going on for the last couple of days. Physical examination did reveal linear area of redness and swelling to the medial ankle. Ultrasound was obtained and did show a pre-occlusive thrombus and a noncompressible caffeine. Is not a DVT. [place] more consistent with superficial venous thrombosis. Patient does have history of DVTs we will start Eliquis. She is instructed to apply warm compresses to the area. Did discuss anticoagulation education. She is instructed to follow-up with her primary care physician for recheck, she does have an appointment on Monday. Return parameters are discussed in detail. She verbalizes understanding and agrees with this plan. - Radiology Data Radiology results: report reviewed Ultrasound of the left lower extremity was obtained. Report was reviewed in its entirety. Impression by Dr. Trini Atwood shows left common femoral vein to the left popliteal vein is negative for DVT. [id number] there is a preocclusive thrombus and a noncompressible left calf pain. Disposition Clinical Impression: Acute superficial venous thrombosis of left lower extremity Disposition: HOME SELF-CARE Condition: Good Instructions (If sedation given, give patient instructions): Superficial Thrombophlebitis (ED), Safe Use of Anticoagulants (ED) Additional Instructions: Take medications as directed. Seek a treatment immediately if you should sustaining a head injury or if you have a bleeding wound. Follow-up with your primary care physician for recheck as soon as possible. Return to the emergency department immediately for any new, worsening, or concerning symptoms. Prescriptions: Apixaban [Eliquis Starter Pack (for VTE)] 0 mg PO DIRECTED 30 Days #1 pack Is patient prescribed a controlled substance at d/c from ED?: No Referrals: Joni Lomeli [Primary Care Provider] - 1-2 days Time of Disposition: 20:09
--- NOTE | 2019-12-05 19:50 | US ---
EXAMINATION TYPE: US venous doppler duplex LE LT DATE OF EXAM: 12/05/2019 7:02 PM COMPARISON: NONE CLINICAL HISTORY: Pain, redness, swelling. Pain, redness, swelling x 3 days. Hx DVT. Patient does not take blood thinners. SIDE PERFORMED: Left TECHNIQUE: The lower extremity deep venous system is examined utilizing real time linear array sonog luci with graded compression, doppler sonography and color-flow sonography. VESSELS IMAGED: Common Femoral Vein Deep Femoral Vein Greater Saphenous Vein * Femoral Vein Popliteal Vein Small Saphenous Vein * Proximal Calf Veins (* superficial vessels) LOWER EXTREMITY FINDINGS: No evidence of DVT from popliteal vein to CFV. Scanned area of concern le ft anterior-medial calf. There appears to be thrombus in noncompressible calf vein. IMPRESSION: 1) LEFT COMMON FEMORAL VEIN THROUGH THE LEFT POPLITEAL VEIN: Negative. 2) BELOW THE KNEE: Pre-occlusive thrombus in a noncompressible left calf vein.
[2019-12-05] MEDS ORDERED: APIXABAN 5 MG TAB PO STA (20:07)
[2019-12-05 20:39] VITALS: BP 132/76; PULSE 66; RESP 18; TEMP 98
== END 2019-12-05 20:39 | disposition home or self-care (01) ==
LOC: EC 17:29
DX: I82.812 Embolism and thrombosis of superficial veins of left lower extremity (principal); M06.9 Rheumatoid arthritis, unspecified; J45.909 Unspecified asthma, uncomplicated; G40.909 Epilepsy, unspecified, not intractable, without status epilepticus; I10 Essential (primary) hypertension; F41.9 Anxiety disorder, unspecified; F32.9 Major depressive disorder, single episode, unspecified; K58.9 Irritable bowel syndrome, unspecified; Z79.51 Long term (current) use of inhaled steroids; Z79.899 Other long term (current) drug therapy; Z85.07 Personal history of malignant neoplasm of pancreas; Z92.21 Personal history of antineoplastic chemotherapy; Z87.891 Personal history of nicotine dependence; Z88.5 Allergy status to narcotic agent; Z88.8 Allergy status to other drugs, medicaments and biological substances
CPT/HCPCS: 99283

== ENCOUNTER → 2020-04-28 | Outpatient (CLI) | payer MEDICARE ==
--- NOTE | 2020-04-30 09:22 | MM ---
Reason for exam: screening (asymptomatic). Last mammogram was performed 2 years and 4 months ago. History: Patient is postmenopausal and has history of other cancer at age 57. Benign cyst aspiration of the right breast, 1992. Took hormonal contraceptives for 3 years beginning at age 26. Took estrogen for 3 months beginning at age 52. Physical Findings: A clinical breast exam by your physician is recommended on an annual basis and results should be correlated with mammographic findings. MG Screening Mammo w CAD Bilateral CC and MLO view(s) were taken. Prior study comparison: January 02, 2018, bilateral MG 3d screening mammo w/cad. February 02, 2016, bilateral MG screening mammo w CAD. The breast tissue is heterogeneously dense. This may lower the sensitivity of mammography. Benign oil cyst calcifications. No significant changes when compared with prior studies. ASSESSMENT: Negative, BI-RAD 1 RECOMMENDATION: Routine screening mammogram of both breasts in 1 year.
== END | disposition home or self-care (01) ==
LOC: RADMAMWWP 15:30
PROVIDERS: ATTEND Family Medicine
DX: Z12.31 Encounter for screening mammogram for malignant neoplasm of breast (principal)
CPT/HCPCS: 77067

== ENCOUNTER → 2020-05-26 | Outpatient (CLI) | payer MEDICARE ==
--- NOTE | 2020-05-27 10:08 | ECHOF ---
Referral Reason:R60.0 lower extremity edema MEASUREMENTS -------- HEIGHT: 162.6 cm WEIGHT: 78.9 kg BP: RVIDd: 3.6 cm (< 3.3) IVSd: 1.3 cm (0.6 - 1.1) LVIDd: 4.4 cm (3.9 - 5.3) LVPWd: 1.3 cm (0.6 - 1.1) IVSs: 1.5 cm LVIDs: 3.2 cm LVPWs: 1.4 cm LA Diam: 3.8 cm (2.7 - 3.8) LAESV Index (A-L): 26.88 ml/m Ao Diam: 3.1 cm (2.0 - 3.7) AV Cusp: 2.1 cm (1.5 - 2.6) MV EXCURSION: 21.757 mm (> 18.000) MV EF SLOPE: 47 mm/s (70 - 150) EPSS: 0.3 cm MV E Vince: 0.42 m/s MV DecT: 185 ms MV A Vince: 0.79 m/s MV E/A Ratio: 0.53 RAP: 5.00 mmHg RVSP: 15.95 mmHg FINDINGS -------- Sinus rhythm. This was a technically good study. The left ventricular size is normal. There is mild concentric left ventricular hypertrophy. Overa ll left ventricular systolic function is normal with, an EF between 55 - 60 %. The right ventricle is normal in size. The left atrial size is normal. Normal LA size by volume 22+/-6 ml/m2. The right atrial size is normal. The aortic valve is trileaflet, and appears structurally normal. No aortic stenosis or regurgitation. Mild mitral regurgitation is present. Mild tricuspid regurgitation present. Right ventricular systolic pressure is normal at < 35 mmHg. There is no pulmonic regurgitation present. The aortic root size is normal. There is no pericardial effusion. CONCLUSIONS -------- 1. Sinus rhythm. 2. This was a technically good study. 3. The left ventricular size is normal. 4. There is mild concentric left ventricular hypertrophy. 5. Overall left ventricular systolic function is normal with, an EF between 55 - 60 %. 6. The right ventricle is normal in size. 7. The left atrial size is normal. 8. Normal LA size by volume 22+/-6 ml/m2. 9. The right atrial size is normal. 10. Mild mitral regurgitation is present. 11. Mild tricuspid regurgitation present. 12. Right ventricular systolic pressure is normal at < 35 mmHg. 13. There is no pulmonic regurgitation present. DIRECTOR OF TEACHER EDUCATION: Joanne Wylie RDCS
== END | disposition home or self-care (01) ==
LOC: RADECHMAIN 11:11
PROVIDERS: ATTEND Family Medicine
DX: I08.1 Rheumatic disorders of both mitral and tricuspid valves (principal); M06.9 Rheumatoid arthritis, unspecified
CPT/HCPCS: 93306

== ENCOUNTER → 2020-08-24 | Outpatient (CLI) | payer MEDICARE ==
--- NOTE | 2020-08-24 17:12 | MR ---
EXAMINATION TYPE: MR angio head wo con DATE OF EXAM: 08/24/2020 COMPARISON: NONE HISTORY: Memory, dizziness, Hx of Cancer 2008 TECHNIQUE: Time of flight images focusing on the [place] of Dick were performed without contrast.. 2-D and 3-D postprocessing imaging is performed on independent workstation and reviewed. FINDINGS: There is codominant vertebrobasilar system. Vertebral arteries are patent to basilar juncti on. Patent right posterior communicating artery. Hypoplastic left posterior communicating artery. No significant focal stenosis or aneurysmal change in the posterior circulation. There is patent anterior indicating artery. There is tortuous course to the left A2 segment with slig ht cylindrical prominence or concentric dilatation up to 3.2 mm image 97 and more distal tapering to 2.5 mm on image 102. Small left lateral branching vessel noted image 96. No significant focal stenosi s seen. 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
--- NOTE | 2020-08-24 23:28 | MR ---
EXAMINATION TYPE: MR brain wo/w con DATE OF EXAM: 08/24/2020 COMPARISON: 04/30/2019 HISTORY: Memory, dizziness, Hx of Cancer 2008 CONTRAST: Standard multiplanar, multisequence MRI departmental protocol utilizing 7.5 mL intravenous Gadavist g adolinium contrast. There is mild diffuse cerebral atrophy. Diffusion images show no evidence of an acute infarct. There is no mass effect nor midline shift. There is no sign of intracranial hemorrhage. The brainstem is in tact. Cerebellum is intact. There is no evidence of orbital mass. Corpus callosum appears normal. Radha la turcica appears normal. There is 2 cm rounded area of simple fluid signal in the right posterior frontal lobe convexity which is extra-axial and consistent with an arachnoid cyst unchanged. Contrast images show normal enhancement of the venous sinuses. There is no pathologic enhancement. Th ere is no evidence of cerebral edema. IMPRESSION: Right frontal lobe convexity arachnoid cyst unchanged. Mild atrophy unchanged. No evidence of metasta tic disease. No acute intracranial abnormality.
== END | disposition home or self-care (01) ==
LOC: RADMRIMAIN 15:40
PROVIDERS: ATTEND Family Medicine
DX: G31.1 Senile degeneration of brain, not elsewhere classified (principal); G93.0 Cerebral cysts; I63.9 Cerebral infarction, unspecified
CPT/HCPCS: 70544; 70553

== ENCOUNTER → 2021-02-11 | Outpatient (CLI) | payer MEDICARE | END | disposition home or self-care (01) | LOC: LABWHC1 15:37 | PROVIDERS: ATTEND Family Medicine | DX: J06.9 Acute upper respiratory infection, unspecified (principal) | CPT/HCPCS: U0003; C9803 ==

== ENCOUNTER 2021-03-15 15:17 | Observation (INO) | payer MEDICARE ==
[2021-03-15] MEDS ORDERED: ASPIRIN 81 MG PO STA (15:47)
[2021-03-15 16:05] LABS: Basophils % (A) 1 %; Eosinophils # (A) 0.2 k/uL (0-0.7); Eosinophils % (A) 2 %; HCT 41.8 % (34.0-46.0); HGB 13.8 gm/dL (11.4-16.0); Lymphocytes # (A) 2.8 k/uL (1.0-4.8); Lymphocytes % (A) 32 %; MCH 30.5 pg (25.0-35.0); MCHC 33.1 g/dL (31.0-37.0); MCV 92.3 fL (80.0-100.0); Mean Platelet Volume 7.9; Monocytes # (A) 0.5 k/uL (0-1.0); Monocytes % (A) 5 %; Neutrophils # (A) 5.2 k/uL (1.3-7.7); Neutrophils % (A) 59 %; Platelet Count 447 k/uL (150-450); RBC 4.53 m/uL (3.80-5.40); RDW 14.6 % (11.5-15.5); WBC 8.9 k/uL (3.8-10.6)
--- NOTE | 2021-03-15 16:07 | ED ---
Chest Pain HPI - General Chief Complaint: Chest Pain Stated Complaint: Chest Pain, [place], left arm pain Time Seen by Provider: 03/15/21 15:33 Source: patient Mode of arrival: wheelchair Limitations: no limitations - History of Present Illness Initial Comments: 70-year-old female with history of hypertension presents to the emergency room with a chief complaint of chest pain. Patient reports having lower, midsternal chest discomfort for the past 3 days but today around noon, she just finished eating and began to develop a dull pain that radiated to her left upper arm and lasted for about 2-3 hours. Denies alleviating or aggravating factors. States the pain has resolved now. Denies any associated dyspnea. She did report having hot flashes and night sweats for the past 3 days but no lightheadedness, dizziness, headaches, visual changes, one-sided weakness and paresthesias. She has never seen a fermenting cellars receiver nor has had a stress test or EKG. - Related Data Home Medications Medication Instructions Recorded Confirmed ALPRAZolam [Xanax] 0.25 mg PO DAILY PRN 06/07/17 08/30/19 Beclomethasone Dip 80 Mcg/Puff 2 puff INHALATION QAM 06/07/17 08/30/19 [Qvar 80 mcg] Ibuprofen [Motrin] 600 mg PO Q6HR PRN 06/07/17 08/30/19 Losartan Potassium 50 mg PO QAM 06/07/17 08/30/19 Montelukast Sodium [Singulair] 10 mg PO HS 06/07/17 08/30/19 Acetaminophen [Tylenol Arthritis] 650 mg PO Q8H PRN 08/28/19 08/30/19 Albuterol Inhaler (Mhu) [Ventolin 1 - 2 puff INHALATION RT-Q6H PRN 08/28/19 08/30/19 Hfa Inhaler] Baclofen [Lioresal] 10 mg PO BID 08/28/19 08/30/19 DULoxetine HCL [Cymbalta] 60 mg PO QAM 08/28/19 08/30/19 Magnesium 250 mg PO HS 08/28/19 08/30/19 Turmeric Root Extract [Turmeric] 500 mg PO DAILY 08/28/19 08/30/19 levETIRAcetam [Keppra] 500 mg PO BID 08/28/19 08/30/19 Previous Rx's Medication Instructions Recorded Apixaban [Eliquis Starter Pack 0 mg PO DIRECTED 30 Days #1 pack 12/05/19 (for VTE)] Allergies Allergy/AdvReac Type Severity Reaction Status Date / Time theophylline Allergy Rapid Verified 03/15/21 17:13 Heart Rate,N/V,headache meperidine [From Demerol] AdvReac Nausea & Verified 03/15/21 17:13 Vomiting Review of Systems ROS Statement: Those systems with pertinent positive or pertinent negative responses have been documented in the HPI. ROS Other: All systems not noted in ROS Statement are negative. Past Medical History Past Medical History: Asthma, Cancer, Deep Vein Thrombosis (DVT), Eye Disorder, GERD/Reflux, Hypertension, Rheumatoid Arthritis (RA), Seizure Disorder Additional Past Medical History / Comment(s): steroid dose pack Jul 2019,focal seizures. Hx bronchitis. IBS. 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 History of Any Multi-Drug Resistant Organisms: None Reported Past Surgical History: Bladder Surgery, Section, Cholecystectomy, Hernia Repair Additional Past Surgical History / Comment(s): EGD,colonoscopy,Bladder sling ,c sect x 3, ventral hernia repairs x 3, sinus surg, distal pancreatectomy and spleenectomy.nadine CATARACT Past Anesthesia/Blood Transfusion Reactions: Previous Problems w/ Anesthesia, Family History of Problems w/ Anesthesia Additional Past Anesthesia/Blood Transfusion Reaction / Comment(s): Sister N/V. ITCHING AND RASH AFTER EYE SURG 06/14/17.no problems with prior blood transfusions Past Psychological History: Anxiety, Depression Smoking Status: Former smoker Past Alcohol Use History: None Reported Past Drug Use History: None Reported, Unable to Obtain - Past Family History Mother Additional Family Medical History / Comment(s): heart valve disease- at age 75 Father Family Medical History: Cancer Additional Family Medical History / Comment(s): prostate CA- at age 65 General Exam Limitations: no limitations Course Vital Signs 03/15/21 03/15/21 15:22 15:58 Temperature 98.3 F Pulse Rate 91 89 Respiratory 18 18 Rate Blood Pressure 140/86 134/83 O2 Sat by Pulse 98 96 Oximetry Chest Pain MDM - MDM 62-year-old female presents to emergency department with a chief complaint chest pain. Physical examination is unremarkable. Vital signs within normal limits. Typical chest pain with atypical features. Negative cardiac workup. Chest x- ray is unremarkable. Patient has a score of 4. Will be admitted for cardiac observation with serial troponins. Case discussed with Admitting is DR Owen Cardiology consult Disposition Clinical Impression: Chest pain Disposition: ADMITTED IP TO THIS HOSP Condition: Stable Instructions (If sedation given, give patient instructions): Chest Pain (ED) Is patient prescribed a controlled substance at d/c from ED?: No Referrals: Joni Lomeli [Primary Care Provider] - 1-2 days Time of Disposition: 17:15
[2021-03-15 16:15] LABS: ALT 15 U/L (4-34); AST 25 U/L (14-36); African American GFR (CKD) >90 (>60 ml/min/1.73 sqM); Albumin 4.5 g/dL (3.5-5.0); Alkaline Phosphatase 83 U/L (38-126); Anion Gap 9 mmol/L; Blood Urea Nitrogen 13 mg/dL (7-17); Carbon Dioxide 27 mmol/L (22-30); Chloride 104 mmol/L (98-107); Glucose 118 mg/dL (74-99); Lipase 176 U/L (23-300); Non-African American GFR(CKD) >90 (>60 ml/min/1.73 sqM); Potassium 4.1 mmol/L (3.5-5.1); Sodium 140 mmol/L (137-145); Total Bilirubin 0.4 mg/dL (0.2-1.3); Total Protein 7.2 g/dL (6.3-8.2)
--- NOTE | 2021-03-15 16:16 | XR ---
EXAMINATION TYPE: XR chest 2V DATE OF EXAM: 03/15/2021 COMPARISON: June 07, 2019 HISTORY: Shortness of breath TECHNIQUE: Frontal and lateral views of the chest are obtained. FINDINGS: Scattered senescent parenchymal changes noted. Hyperinflation compatible with COPD. No evidence for infiltrate. No evidence for atelectasis. Heart size is stable. Mediastinal structures are stable and grossly unremarkable. No evidence for hilar prominence. Degenerative changes dorsal spine. IMPRESSION: 1. No evidence for acute pulmonary disease.
[2021-03-15 16:18] LABS: INR 0.9 (<1.2); Partial Thromboplastin Time 22.1 sec (22.0-30.0)
[2021-03-15] MEDS ORDERED: NITROGLYCERIN SL TABS 0.4 MG TAB SUBLINGUAL PRN (17:10)
[2021-03-15] MEDS ORDERED: hydrOXYzine HCL 10 MG TAB PO PRN (22:03)
[2021-03-15] MEDS ORDERED: ACETAMINOPHEN TAB 325 MG TAB PO PRN (22:04)
--- NOTE | 2021-03-15 23:08 | P.HPIM ---
History of Present Illness H&P Date: 03/15/21 The patient is a 70-year-old female with a PMH of hypertension, asthma, seizure disorder, rheumatoid arthritis, and a distant history of DVT who presented to the emergency room with complaints of chest discomfort. The patient reports that her symptoms started 3 days ago with mild intermittent substernal chest discomfort. She initially did not think much of it, until earlier today when following her lunch at noon when the pain acutely worsened to a 7 out of 10, pressure-like in nature, substernal, with radiation to the left arm. The patient reported associated shortness of breath and nausea. Denied alleviating or exacerbating factors. The pain lasted for nearly one hour and then resolved spontaneously. She reports no complaints at the time of interview and feels back to her baseline. Also denied lightheadedness, dizziness, palpitations, vomiting. The patient reports having undergone a cardiac catheterization 1-2 years ago which she was told was unremarkable. In the emergency room and EKG revealed normal sinus rhythm at 90 bpm with LVH. Chest x-ray was unremarkable. Laboratory evaluation revealed a troponin less than 0.012, glucose 118, and otherwise unremarkable. Review of Systems Pertinent positives and negatives as discussed in HPI, a complete review of systems was performed and all other systems are negative. Past Medical History Past Medical History: Asthma, Cancer, Deep Vein Thrombosis (DVT), Eye Disorder, GERD/Reflux, Hypertension, Rheumatoid Arthritis (RA), Seizure Disorder Additional Past Medical History / Comment(s): steroid dose pack Jul 2019,focal seizures. Hx bronchitis. IBS. Pacreatic CA 2008-chemo x 6 months; DVT AFTER MAJOR SURGERY. History of Any Multi-Drug Resistant Organisms: None Reported Past Surgical History: Bladder Surgery, Section, Cholecystectomy, Hernia Repair Additional Past Surgical History / Comment(s): EGD,colonoscopy,Bladder sling ,c sect x 3, ventral hernia repairs x 3, sinus surg, distal pancreatectomy and spleenectomy.nadine CATARACT Past Anesthesia/Blood Transfusion Reactions: Previous Problems w/ Anesthesia, Family History of Problems w/ Anesthesia Additional Past Anesthesia/Blood Transfusion Reaction / Comment(s): Sister N/V. ITCHING AND RASH AFTER EYE SURG 06/14/17.no problems with prior blood transfusions Past Psychological History: Anxiety, Depression Smoking Status: Former smoker Past Alcohol Use History: None Reported Additional Past Alcohol Use History / Comment(s): Quit smoking 2002, Smoked approx 30 yrs on and off > 1ppd Past Drug Use History: None Reported, Unable to Obtain - Past Family History Mother Additional Family Medical History / Comment(s): heart valve disease- at age 75 Father Family Medical History: Cancer Additional Family Medical History / Comment(s): prostate CA- at age 65 Medications and Allergies Home Medications Medication Instructions Recorded Confirmed Type Beclomethasone Dip 80 Mcg/Puff 1 puff INHALATION RT-DAILY 06/07/17 03/15/21 History [Qvar 80 mcg] Losartan Potassium 50 mg PO DAILY 06/07/17 03/15/21 History Folic Acid 1 mg PO DAILY 03/15/21 03/15/21 History Ibuprofen [Motrin] 800 mg PO TID PRN 03/15/21 03/15/21 History Omeprazole 40 mg PO DAILY 03/15/21 03/15/21 History hydrOXYzine HCL 10 mg PO TID PRN 03/15/21 03/15/21 History lamoTRIgine [LaMICtal] 150 mg PO BID 03/15/21 03/15/21 History metHOTREXate sodium [Methotrexate] 25 mg PO WE 03/15/21 03/15/21 History Allergies Allergy/AdvReac Type Severity Reaction Status Date / Time theophylline Allergy Rapid Verified 03/15/21 17:13 Heart Rate,N/V,headache meperidine [From Demerol] AdvReac Nausea & Verified 03/15/21 17:13 Vomiting Physical Exam Vitals: Vital Signs Temp Pulse Resp BP Pulse Ox 03/15/21 18:25 98.6 F 80 18 137/86 97 03/15/21 17:37 82 18 133/82 95 03/15/21 15:58 89 18 134/83 96 03/15/21 15:22 98.3 F 91 18 140/86 98 Intake and Output 03/15/21 03/15/21 03/15/21 06:59 14:59 22:59 Other: Weight 73.482 kg General: non toxic, no distress, appears at stated age, normal weight Derm: no unusual rashes/lesions no unusual ecchymoses, warm, dry Head: atraumatic, normocephalic, symmetric Eyes: EOMI, no lid lag, anicteric sclera, pupils equal round reactive to light ENT: Nose and ears atraumatic, no thrush, no pharyngeal erythema Neck: No thyromegaly, no cervical lymphadenopathy, trachea midline, supple Mouth: no lip lesion, mucus membranes moist Cardiovascular: S1S2 reg, no murmur, positive posterior tibial pulse bilateral, no edema, capillary refill less than 2 seconds Lungs: CTA bilateral, no rhonchi, no rales , no accessory muscle use Abdominal: soft, nontender to palpation, no guarding, no appreciable organomegaly, normal bowel sounds Ext: no gross muscle atrophy, muscle strength 5 out of 5 in all 4 extremities grossly, no contractures, Neuro: CN II-XI grossly intact, light touch intact all 4 extremities, finger to nose within normal limits, Psych: Alert, oriented, appropriate affect Results CBC & Chem 7: 03/15/21 15:54 03/15/21 15:54 Labs: Abnormal Lab Results - Last 24 Hours (Table) 03/15/21 Range/Units 15:54 Glucose 118 H (74-99) mg/dL Thrombosis Risk Factor Assmnt - Choose All That Apply Any of the Below Risk Factors Present?: Yes Each Factor Represents 1 point: Obesity (BMI >25) Other Risk Factors: Yes Each Risk Factor Represents 2 Points: Age 61-74 years Each Risk Factor Represents 3 Points: Family history of DVT/PE Other congenital or acquired thrombophilia - If yes, enter type in comment: No Thrombosis Risk Factor Assessment Total Risk Factor Score: 6 Thrombosis Risk Factor Assessment Level: High Risk Assessment and Plan Plan: Chest pain, rule out ACS -Continue with aspirin, statin -Cardiac monitoring -Cardiology consult -Trend troponin Chronic conditions: Rheumatoid arthritis, seizure disorder, hypertension -Continue with home medications DVT prophylaxis -Heparin subq The patient is admitted with an anticipated less than 2 midnight stay for evalua tion of chest pain CODE STATUS: Full Code Discussed with: patient Anticipated discharge date: in am Anticipated discharge place:home A total of 35 minutes was spent on the care of this complex patient more than 50% of the time was spent in counseling and care coordination.
[2021-03-15] MEDS ORDERED: ATORVASTATIN 80 MG TAB PO SCH (23:15)
[2021-03-15] MEDS: HEPARIN SODIUM,PORCINE/PF 5,000 UNIT/0.5 ML SYRINGE SQ SCH (23:23)
[2021-03-15] MEDS: lamoTRIgine 100 MG TAB PO SCH (23:23)
[2021-03-16] MEDS ORDERED: CAFFEINE CITRATE 60 MG/3 ML VIAL IV PRN (07:58)
[2021-03-16] MEDS ORDERED: AMINOPHYLLINE 500 MG/20 ML VIAL IV PRN (07:58)
[2021-03-16] MEDS ORDERED: REGADENOSON 0.4 MG/5 ML SYRINGE IV PRN (07:58)
[2021-03-16 08:12] VITALS: BP 116/76; PULSE 74; RESP 16; TEMP 98.2
[2021-03-16] MEDS: lamoTRIgine 100 MG TAB PO SCH (08:17)
[2021-03-16] MEDS: HEPARIN SODIUM,PORCINE/PF 5,000 UNIT/0.5 ML SYRINGE SQ SCH (08:18)
[2021-03-16] MEDS ORDERED: ASPIRIN 81 MG PO SCH (09:00)
[2021-03-16] MEDS ORDERED: FOLIC ACID 1 MG TAB PO SCH (09:00)
[2021-03-16] MEDS ORDERED: LOSARTAN 50 MG TAB PO SCH (09:00)
[2021-03-16] MEDS ORDERED: ASPIRIN 325 MG TAB PO SCH (09:00)
[2021-03-16 09:41] LABS: Chol/HDL Ratio 4.84
[2021-03-16 10:28] LABS: Hemoglobin A1C 5.9 % (4.0-6.0)
--- NOTE | 2021-03-16 10:57 | ECHOF ---
Referral Reason:chest pain MEASUREMENTS -------- HEIGHT: 167.6 cm WEIGHT: 75.3 kg BP: 115/70 RVIDd: 3.4 cm (< 3.3) IVSd: 1.3 cm (0.6 - 1.1) LVIDd: 4.3 cm (3.9 - 5.3) LVPWd: 1.3 cm (0.6 - 1.1) IVSs: 1.6 cm LVIDs: 2.8 cm LVPWs: 1.5 cm LA Diam: 3.6 cm (2.7 - 3.8) LAESV Index (A-L): 24.56 ml/m Ao Diam: 3.1 cm (2.0 - 3.7) AV Cusp: 2.2 cm (1.5 - 2.6) MV EXCURSION: 10.378 mm (> 18.000) MV EF SLOPE: 41 mm/s (70 - 150) EPSS: 0.9 cm MV E Vince: 0.58 m/s MV DecT: 300 ms MV A Vince: 0.85 m/s MV E/A Ratio: 0.68 AR PHT: 1061 ms RAP: 5.00 mmHg RVSP: 21.81 mmHg FINDINGS -------- Sinus rhythm. This was a technically good study. The left ventricular size is normal. There is mild concentric left ventricular hypertrophy. Overa ll left ventricular systolic function is normal with, an EF between 60 - 65 %. The right ventricle is mildly enlarged. Normal LA size by volume 22+/-6 ml/m2. The right atrium is normal in size. Interatrial and interventricular septum intact. There is mild aortic valve sclerosis. There is mild aortic regurgitation. Mild mitral annular calcification present. There is trace to mild mitral regurgitation. Mild tricuspid regurgitation present. Right ventricular systolic pressure is normal at < 35 mmHg. Trace/mild (physiologic) pulmonic regurgitation. The aortic root size is normal. Normal inferior vena cava with normal inspiratory collapse consistent with estimated right atrial pre ssure of 5 mmHg. There is no pericardial effusion. CONCLUSIONS -------- 1. The left ventricular size is normal. 2. There is mild concentric left ventricular hypertrophy. 3. Overall left ventricular systolic function is normal with, an EF between 60 - 65 %. 4. The right ventricle is mildly enlarged. 5. There is mild aortic valve sclerosis. 6. There is mild aortic regurgitation. 7. Mild mitral annular calcification present. 8. There is trace to mild mitral regurgitation. 9. Mild tricuspid regurgitation present. 10. Trace/mild (physiologic) pulmonic regurgitation. 11. There is no pericardial effusion. SEO PROFESSIONAL: HEBERT Aguilera
--- NOTE | 2021-03-16 11:04 | P.STRESS ---
- Stress Test Note Stress Test Results/Findings: Exam Performed: NM stress lexiscan cardiolite Exam Date: 03/16/21 Reason for Exam: Chest Pain Height: 5 ft 6 in Weight: 73.48 kg Protocol: Lexiscan Stage: na Duration of Exercise: na Resting Heart Rate: 76 Resting Blood Pressure: 136/88 Maximum Achieved Heart Rate: 104 Maximum Achieved Blood Pressure: 140/79 85% PMHR: 129 100% PMHR: 152 METS: na Technologist Comment: Stress Test Results/Findings: This is a 70-year-old female with history of hypertension and smoking being evaluated for symptoms of chest pain. Stress data: Baseline EKG showed sinus rhythm with normal VA interval and QRS duration. Blood pressure at rest is 136/88 with pulse rate of 76. Chest and dose of Lexiscan was infused. EKGs taken during and after the infusion did not reveal any significant changes from the baseline. Final impression: #1. Negative Lexiscan stress test #2. Report on the nuclear portion of the test to be given by the radiologist.
--- NOTE | 2021-03-16 11:10 | P.CRDCN ---
History of Present Illness Consult date: 03/16/21 History of present illness: HISTORY OF PRESENT ILLNESS: This is a 70-year-old female with a past medical history significant for GERD, hypertension, rheumatoid arthritis, pancreatic cancer and seizure disorder. 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 We have been asked to see the patient in consultation for chest pain. Patient examined at the bedside. Patient states yesterday she was eating lunch and was feeling in her normal state of health and then began having some nausea and was unable to finish her meal. She states shortly afterwards she began having left-sided chest pain. She states it felt like a pressure and radiated to her left arm. She reports some mild shortness of breath. She states the pain lasted for about an hour and finally eased up when she came to the hospital. Patient denies having any chest discomfort this morning. Patient does report history of cholecystectomy. She states she has never had a stress test or cardiac catheterization in the past. Patient denies nicotine use or alcohol use. EKG reveals sinus mechanism nonspecific ST-T wave changes Chest xray no evidence of acute pulmonary disease Laboratory data: WBC 8.9. Hemoglobin 13.8. Platelet count 447. Sodium 140. Potassium 4.1. BUN 13. Creatinine 0.60. Troponin negative 3 Current home cardiac medications include losartan 50 mg daily Echocardiogram completed in May 2020 revealed ejection fraction 55-60% REVIEW OF SYSTEMS: At the time of my exam: CONSTITUTIONAL: Denies fever or chills. HEENT: Denies blurred vision, vision changes, or eye pain. Denies hemoptysis CARDIOVASCULAR: Denies chest pain. Denies orthopnea. Denies PND. Denies palpitations RESPIRATORY: Denies shortness of breath. GASTROINTESTINAL: Denies abdominal pain. Denies nausea or vomiting. HEMATOLOGIC: Denies bleeding disorders. GENITOURINARY: Denies any blood in urine. SKIN: Denies pruitis. Denies rash. PHYSICAL EXAM: VITAL SIGNS: Reviewed. GENERAL: Well-developed in no acute distress. HEENT: Head is normocephalic. Pupils are equal, round. Sclerae anicteric. Mucous membranes of the mouth are moist. Neck supple. No JVD or thyromegaly LUNGS: Respirations even and unlabored. Lungs essentially clear to auscultation bilaterally. HEART: Regular rate and rhythm. S1 and S2 heard. ABDOMEN: Soft. Nondistended. Nontender. EXTREMITIES: Normal range of motion. No clubbing or cyanosis. Peripheral pulses intact. No lower extremity edema NEUROLOGIC: Awake and alert. Oriented x 3. ASSESSMENT: Chest pain, troponins negative 3 Hypertension GERD Rheumatoid arthritis History of pancreatic cancer History of seizure disorder PLAN: An acute coronary event has been ruled out Obtain 2-D echo to assess cardiac structure and function Resume home cardiac medications Patient will undergo Lexiscan stress test today to assess for reversible ischemia Further recommendations pending patient's course Nurse practitioner note has been reviewed by physician. Signing provider agrees with the documented findings, assessment, and plan of care. Past Medical History Past Medical History: Asthma, Cancer, Deep Vein Thrombosis (DVT), Eye Disorder, GERD/Reflux, Hypertension, Rheumatoid Arthritis (RA), Seizure Disorder Additional Past Medical History / Comment(s): steroid dose pack Jul 2019,focal seizures. Hx bronchitis. IBS. Pacreatic CA 2007-chemo x 6 months; DVT AFTER MAJOR SURGERY. History of Any Multi-Drug Resistant Organisms: None Reported Past Surgical History: Bladder Surgery, Section, Cholecystectomy, Hernia Repair Additional Past Surgical History / Comment(s): EGD,colonoscopy,Bladder sling ,c sect x 3, ventral hernia repairs x 3, sinus surg, distal pancreatectomy and spleenectomy.nadine CATARACT Past Anesthesia/Blood Transfusion Reactions: Previous Problems w/ Anesthesia, Family History of Problems w/ Anesthesia Additional Past Anesthesia/Blood Transfusion Reaction / Comment(s): Sister N/V. ITCHING AND RASH AFTER EYE SURG 06/14/17.no problems with prior blood transfusions Past Psychological History: Anxiety, Depression Smoking Status: Former smoker Past Alcohol Use History: None Reported Additional Past Alcohol Use History / Comment(s): Quit smoking 2002, Smoked approx 30 yrs on and off > 1ppd Past Drug Use History: None Reported, Unable to Obtain - Past Family History Mother Additional Family Medical History / Comment(s): heart valve disease- at age 75 Father Family Medical History: Cancer Additional Family Medical History / Comment(s): prostate CA- at age 65 Medications and Allergies Home Medications Medication Instructions Recorded Confirmed Type Beclomethasone Dip 80 Mcg/Puff 1 puff INHALATION RT-DAILY 06/07/17 03/15/21 History [Qvar 80 mcg] Losartan Potassium 50 mg PO DAILY 06/07/17 03/15/21 History Folic Acid 1 mg PO DAILY 03/15/21 03/15/21 History Ibuprofen [Motrin] 800 mg PO TID PRN 03/15/21 03/15/21 History Omeprazole 40 mg PO DAILY 03/15/21 03/15/21 History hydrOXYzine HCL 10 mg PO TID PRN 03/15/21 03/15/21 History lamoTRIgine [LaMICtal] 150 mg PO BID 03/15/21 03/15/21 History metHOTREXate sodium [Methotrexate] 25 mg PO WE 03/15/21 03/15/21 History Allergies Allergy/AdvReac Type Severity Reaction Status Date / Time theophylline Allergy Rapid Verified 03/15/21 17:13 Heart Rate,N/V,headache meperidine [From Demerol] AdvReac Nausea & Verified 03/15/21 17:13 Vomiting Physical Exam Vitals: Vital Signs Temp Pulse Pulse Resp BP BP Pulse Ox 03/16/21 02:00 18 03/16/21 00:54 97.2 F L 60 16 115/70 95 03/15/21 19:05 98.6 F 74 18 122/80 95 03/15/21 18:25 98.6 F 80 18 137/86 97 03/15/21 17:37 82 18 133/82 95 03/15/21 15:58 89 18 134/83 96 03/15/21 15:22 98.3 F 91 18 140/86 98 Intake and Output 03/15/21 03/16/21 03/16/21 22:59 06:59 14:59 Other: Voiding Method Toilet # Voids 2 2 Weight 73.482 kg Results 03/15/21 15:54 03/15/21 15:54 Cardiac Enzymes 03/15/21 03/15/21 03/15/21 Range/Units 15:54 15:54 18:47 AST 25 (14-36) U/L Troponin I <0.012 <0.012 (0.000-0.034) ng/mL 03/15/21 Range/Units 21:26 AST (14-36) U/L Troponin I <0.012 (0.000-0.034) ng/mL Coagulation 03/15/21 Range/Units 15:54 PT 10.0 (9.0-12.0) sec APTT 22.1 (22.0-30.0) sec CBC 03/15/21 Range/Units 15:54 WBC 8.9 (3.8-10.6) k/uL RBC 4.53 (3.80-5.40) m/uL Hgb 13.8 (11.4-16.0) gm/dL Hct 41.8 (34.0-46.0) % Plt Count 447 (150-450) k/uL Comprehensive Metabolic Panel 03/15/21 Range/Units 15:54 Sodium 140 (137-145) mmol/L Potassium 4.1 (3.5-5.1) mmol/L Chloride 104 (98-107) mmol/L Carbon Dioxide 27 (22-30) mmol/L BUN 13 (7-17) mg/dL Creatinine 0.60 (0.52-1.04) mg/dL Glucose 118 H (74-99) mg/dL Calcium 10.0 (8.4-10.2) mg/dL AST 25 (14-36) U/L ALT 15 (4-34) U/L Alkaline Phosphatase 83 (38-126) U/L Total Protein 7.2 (6.3-8.2) g/dL Albumin 4.5 (3.5-5.0) g/dL Current Medications Generic Name Dose Route Start Last Admin Trade Name Freq PRN Reason Stop Dose Admin Acetaminophen 650 mg 03/15/21 22:04 Acetaminophen Tab 325 Mg Tab PO Q6HR PRN Fever and/ or Pain Aspirin 81 mg 03/16/21 09:00 Aspirin 81 Mg PO DAILY [facility] Atorvastatin Calcium 80 mg 03/15/21 23:15 03/15/21 23:23 Atorvastatin 80 Mg Tab PO 80 mg HS [facility] Administration Folic Acid 1 mg 03/16/21 09:00 Folic Acid 1 Mg Tab PO DAILY [facility] Heparin Sodium (Porcine) 5,000 unit 03/16/21 00:00 03/15/21 23:23 Heparin Sodium,Porcine/Pf 5,000 Unit/0.5 Ml Syringe SQ 5,000 unit Q8HR [facility] Administration Hydroxyzine HCl 10 mg 03/15/21 22:03 Hydroxyzine Hcl 10 Mg Tab PO TID PRN Anxiety Lamotrigine 300 mg 03/15/21 22:15 03/15/21 23:23 Lamotrigine 100 Mg Tab PO 300 mg BID [facility] Administration Losartan Potassium 50 mg 03/16/21 09:00 Losartan 50 Mg Tab PO DAILY [facility] Methotrexate 25 mg 03/17/21 09:00 Methotrexate Sodium 2.5 Mg Tab PO WE [facility] Nitroglycerin 0.4 mg 03/15/21 17:10 Nitroglycerin Sl Tabs 0.4 Mg Tab SUBLINGUAL Q5M PRN Chest Pain Intake and Output 03/15/21 03/16/21 03/16/21 22:59 06:59 14:59 Other: Voiding Method Toilet # Voids 2 2 Weight 73.482 kg 03/15/21 15:54 03/15/21 15:54
--- NOTE | 2021-03-16 12:07 | NM ---
EXAMINATION TYPE: NM stress lexiscan cardiolite DATE OF EXAM: 03/16/2021 COMPARISON: NONE HISTORY: Chest pain or palpitations TECHNIQUE: After the intravenous administration of 9.8 mCi Tc 99m Sestamibi - Cardiolite resting SPE CT images acquired 45 minutes post injection. At peak stress 25.4 mCi Tc 99m Sestamibi - Stress images obtained 30 minutes post injection The patient was stressed with 0.4mg Lexiscan. FINDINGS: No reversible perfusion defects are evident. Very subtle diminished radiotracer accumulation may be a couple of axial images in the posterior late ral wall better visualized by the polar maps. This is very small and does not follow a normal vascula r distribution. This is on both resting and stress images. This could be artifactual, minimal old isc hemic changes at this level is considered less likely. Wall motion is normal Ejection fraction is calculated to be 62 %. IMPRESSION: 1. Minimal posterior lateral perfusion defect may be an old area of ischemia or artifactual. 2. No stress-induced ischemic changes identified. 3. Normal ejection fraction
--- NOTE | 2021-03-16 14:13 | P.DS ---
Providers Date of admission: 03/15/21 17:03 Expected date of discharge: 03/16/21 Attending physician: Franky Cerda Consults: 03/15/21 17:10 Consult Physician Urgent Consulting Provider: Natalie Hansen Consult Reason/Comments: Chest pain, serial troponins Do you want consulting provider notified?: Yes Primary care physician: [facility] Course: 70-year-old female with a PMH of hypertension, asthma, seizure disorder, rheumatoid arthritis, and a distant history of DVT who presented to the emergency room with complaints of chest discomfort. The patient reports that her symptoms started 3 days ago with mild intermittent substernal chest discomfort. She initially did not think much of it, until earlier today when following her lunch at noon when the pain acutely worsened to a 7 out of 10, pressure-like in nature, substernal, with radiation to the left arm. The patient reported associated shortness of breath and nausea. Denied alleviating or exacerbating factors. The pain lasted for nearly one hour and then resolved spontaneously. She reports no complaints at the time of interview and feels back to her baseline. Also denied lightheadedness, dizziness, palpitations, vomiting. The patient reports having undergone a cardiac catheterization 1-2 years ago which she was told was unremarkable. In the emergency room and EKG revealed normal sinus rhythm at 90 bpm with LVH. Chest x-ray was unremarkable. Laboratory evaluation revealed a troponin less than 0.012, glucose 118, and otherwise unremarkable. Upon admission troponin was cycled, which remained negative. ACS was ruled out. She was seen by cardiology, underwent a chemical stress test that was negative for ischemia. She did not have any recurrent chest pain. She thought that her symptoms were most likely secondary to acid reflux, she burps frequently. Upon discharge she'll be given GERD instructions. Motrin was discontinued as well. She'll be discharged home in stable condition. Patient Condition at Discharge: Stable Plan - Discharge Summary Discharge Rx Participant: No New Discharge Prescriptions: Continue Beclomethasone Dip 80 Mcg/Puff [Qvar 80 mcg] 1 puff INHALATION RT-DAILY Losartan Potassium 50 mg PO DAILY metHOTREXate sodium [Methotrexate] 25 mg PO WE lamoTRIgine [LaMICtal] 150 mg PO BID hydrOXYzine HCL 10 mg PO TID PRN PRN Reason: Anxiety Omeprazole 40 mg PO DAILY Folic Acid 1 mg PO DAILY Discontinued Ibuprofen [Motrin] 800 mg PO TID PRN PRN Reason: Pain Discharge Medication List Beclomethasone Dip 80 Mcg/Puff [Qvar 80 mcg] 1 puff INHALATION RT-DAILY 06/07/17 [History] Losartan Potassium 50 mg PO DAILY 06/07/17 [History] Folic Acid 1 mg PO DAILY 03/15/21 [History] Omeprazole 40 mg PO DAILY 03/15/21 [History] hydrOXYzine HCL 10 mg PO TID PRN 03/15/21 [History] lamoTRIgine [LaMICtal] 150 mg PO BID 03/15/21 [History] metHOTREXate sodium [Methotrexate] 25 mg PO WE 03/15/21 [History] Follow up Appointment(s)/Referral(s): Joni Lomeli [Primary Care Provider] - 1-2 days Patient Instructions/Handouts: Chest Pain (ED) Activity/Diet/Wound Care/Special Instructions: Eat frequent small meals Don't lay flat after eating Don't eat 4 hours before bedtime -Avoid caffeine, alcohol, spicy food
--- NOTE | 2021-03-17 08:25 | ECHOS ---
Stress Test Results/Findings: Exam Performed: NM stress lexiscan cardiolite Exam Date: 03/16/21 Reason for Exam: Chest Pain Height: 5 ft 6 in Weight: 73.48 kg Protocol: Lexiscan Stage: na Duration of Exercise: na Resting Heart Rate: 76 Resting Blood Pressure: 136/88 Maximum Achieved Heart Rate: 104 Maximum Achieved Blood Pressure: 140/79 85% PMHR: 129 100% PMHR: 152 METS: na Technologist Comment: Stress Test Results/Findings: This is a 70-year-old female with history of hypertension and smoking being evaluated for symptoms of chest pain. Stress data: Baseline EKG showed sinus rhythm with normal [place] interval and QRS duration. Blood pressure at rest is 136/88 with pulse rate of 76. Chest and dose of Lexiscan was infused. EKGs taken during and after the infusion did not reveal any significant changes from the baseline. Final impression: #1. Negative Lexiscan stress test #2. Report on the nuclear portion of the test to be given by the radiologist. JOE
[2021-03-17] MEDS ORDERED: metHOTREXate sodium 2.5 MG TAB PO SCH (09:00)
== END 2021-03-16 15:29 | disposition home or self-care (01) ==
LOC: EC 15:17 → 6NMEDSUR 17:03
PROVIDERS: ADMIT Internal Medicine; ATTEND Internal Medicine
DX: R07.89 Other chest pain (principal); J45.909 Unspecified asthma, uncomplicated; I10 Essential (primary) hypertension; R61 Generalized hyperhidrosis; R11.0 Nausea; G40.909 Epilepsy, unspecified, not intractable, without status epilepticus; K21.9 Gastro-esophageal reflux disease without esophagitis; M06.9 Rheumatoid arthritis, unspecified; N95.1 Menopausal and female climacteric states; K58.9 Irritable bowel syndrome, unspecified; F32.9 Major depressive disorder, single episode, unspecified; F41.9 Anxiety disorder, unspecified; E66.9 Obesity, unspecified; Z68.26 Body mass index [BMI] 26.0-26.9, adult; Z20.822 Contact with and (suspected) exposure to COVID-19; Z79.51 Long term (current) use of inhaled steroids; Z79.899 Other long term (current) drug therapy; Z88.5 Allergy status to narcotic agent; Z88.8 Allergy status to other drugs, medicaments and biological substances; Z86.718 Personal history of other venous thrombosis and embolism; Z85.07 Personal history of malignant neoplasm of pancreas; Z92.21 Personal history of antineoplastic chemotherapy; Z90.411 Acquired partial absence of pancreas; Z90.81 Acquired absence of spleen; Z90.49 Acquired absence of other specified parts of digestive tract; Z98.890 Other specified postprocedural states; Z98.42 Cataract extraction status, left eye; Z98.41 Cataract extraction status, right eye; Z98.891 History of uterine scar from previous surgery; Z87.891 Personal history of nicotine dependence; Z82.49 Family history of ischemic heart disease and other diseases of the circulatory system; Z80.42 Family history of malignant neoplasm of prostate
CPT/HCPCS: 96372 ×2; 93005 ×2; 99285; 36415; 93017; 93306; 80061; 80053; 83690; 83735; 84484; 85025; 85610; 85730; 83036; 87635; 71046; 78452; G0378 ×2; A9500; J2785; J1644 ×2

== ENCOUNTER 2021-03-19 08:47 | Emergency (ER) | payer MEDICARE ==
[2021-03-19] MEDS ORDERED: SODIUM CHLORIDE 0.9% 1,000 ML IV STA (09:04)
[2021-03-19] MEDS ORDERED: ONDANSETRON 4 MG/2 ML VIAL IVP STA (09:04)
[2021-03-19] MEDS ORDERED: PANTOPRAZOLE 40 MG/10 ML VIAL IVP STA (09:04)
[2021-03-19] MEDS ORDERED: MAG HYDROX/AL HYDROX/SIMETH 30 ML, HYOSCYAMINE ELIXIR 10 ML PO STA ×2 (09:05)
[2021-03-19 09:34] LABS: Basophils % (A) 0 %; Eosinophils # (A) 0.2 k/uL (0-0.7); Eosinophils % (A) 3 %; HCT 41.3 % (34.0-46.0); HGB 14.1 gm/dL (11.4-16.0); Lymphocytes # (A) 2.6 k/uL (1.0-4.8); Lymphocytes % (A) 35 %; MCH 31.4 pg (25.0-35.0); MCHC 34.1 g/dL (31.0-37.0); Mean Platelet Volume 7.9; Monocytes # (A) 0.3 k/uL (0-1.0); Monocytes % (A) 5 %; Neutrophils # (A) 4.2 k/uL (1.3-7.7); Neutrophils % (A) 56 %; Platelet Count 435 k/uL (150-450); RBC 4.49 m/uL (3.80-5.40); RDW 14.6 % (11.5-15.5); WBC 7.5 k/uL (3.8-10.6)
[2021-03-19 09:42] LABS: Amorphous Sediment,Urine Occasional /hpf; Appearance,Urine Cloudy (Clear); Bacteria,Urine Rare /hpf; Bilirubin,Urine Negative (Negative); Blood,Urine Negative (Negative); Color,Urine Light Yellow; Glucose,Urine (UA) Negative (Negative); Ketones,Urine Trace (Negative); Leukocyte Esterase,Urine Large (Negative); Mucus,Urine Rare /hpf; Nitrite,Urine Negative (Negative); Protein,Urine Negative (Negative); Specific Gravity,Urine 1.009 (1.001-1.035); Squamous Epithelial Cell,Urine 1 /hpf (0-4); Urobilinogen,Urine <2.0 mg/dL (<2.0); WBC,Urine 15 /hpf (0-5)
[2021-03-19 09:46] LABS: ALT 30 U/L (4-34); AST 46 U/L (14-36); African American GFR (CKD) >90 (>60 ml/min/1.73 sqM); Albumin 4.7 g/dL (3.5-5.0); Alkaline Phosphatase 87 U/L (38-126); Amylase 61 U/L (30-110); Anion Gap 7 mmol/L; Blood Urea Nitrogen 11 mg/dL (7-17); Calcium 9.7 mg/dL (8.4-10.2); Carbon Dioxide 30 mmol/L (22-30); Chloride 103 mmol/L (98-107); Glucose 105 mg/dL (74-99); Lipase 139 U/L (23-300); Non-African American GFR(CKD) >90 (>60 ml/min/1.73 sqM); Sodium 140 mmol/L (137-145); Total Bilirubin 0.8 mg/dL (0.2-1.3); Total Protein 7.6 g/dL (6.3-8.2)
[2021-03-19 09:47] LABS: Partial Thromboplastin Time 23.2 sec (22.0-30.0); Prothrombin Time 10.9 sec (9.0-12.0)
--- NOTE | 2021-03-19 10:12 | ED ---
Abdominal Pain HPI - General Chief Complaint: Abdominal Pain Stated Complaint: Abd pain Time Seen by Provider: 03/19/21 08:57 Source: patient, RN notes reviewed Mode of arrival: ambulatory Limitations: no limitations - History of Present Illness Initial Comments: 70-year-old female presents emergency apartment with chief complaint of left- sided abdominal pain. Patient states started last day or so. He states it is worse when she eats. Patient denies any chest pain reflux. She had a recent hospitalization for chest pain she had a negative workup. Patient denies any melena but states that she's had loose diarrhea stools no dysuria no hematuria currently but she states she's had some frequency. Patient did prior cholecystectomy no other abdominal surgeries. - Related Data Home Medications Medication Instructions Recorded Confirmed Beclomethasone Dip 80 Mcg/Puff 1 puff INHALATION RT-DAILY 06/07/17 03/19/21 [Qvar 80 mcg] Losartan Potassium 50 mg PO DAILY 06/07/17 03/19/21 Folic Acid 1 mg PO DAILY 03/15/21 03/19/21 Omeprazole 40 mg PO DAILY 03/15/21 03/19/21 hydrOXYzine HCL 10 mg PO TID PRN 03/15/21 03/19/21 lamoTRIgine [LaMICtal] 150 mg PO BID 03/15/21 03/19/21 metHOTREXate sodium [Methotrexate] 25 mg PO WE 03/15/21 03/19/21 Previous Rx's Medication Instructions Recorded Nitrofurantoin Monohyd/M-Cryst 100 mg PO Q12HR #14 cap 03/19/21 [Macrobid] Omeprazole [PriLOSEC] 40 mg PO DAILY #14 cap 03/19/21 Ondansetron Odt [Zofran Odt] 4 mg PO Q8HR PRN #10 tab 03/19/21 Allergies Allergy/AdvReac Type Severity Reaction Status Date / Time theophylline Allergy Rapid Verified 03/19/21 09:42 Heart Rate,N/V,headache meperidine [From Demerol] AdvReac Nausea & Verified 03/19/21 09:42 Vomiting Review of Systems ROS Statement: Those systems with pertinent positive or pertinent negative responses have been documented in the HPI. ROS Other: All systems not noted in ROS Statement are negative. Past Medical History Past Medical History: Asthma, Cancer, Deep Vein Thrombosis (DVT), Eye Disorder, GERD/Reflux, Hypertension, Rheumatoid Arthritis (RA), Seizure Disorder Additional Past Medical History / Comment(s): steroid dose pack Jul 2019,focal seizures. Hx bronchitis. IBS. Pacreatic CA 2008-chemo x 6 months; DVT AFTER MAJOR SURGERY. History of Any Multi-Drug Resistant Organisms: None Reported Past Surgical History: Bladder Surgery, Section, Cholecystectomy, Hernia Repair Additional Past Surgical History / Comment(s): EGD,colonoscopy,Bladder sling ,c sect x 3, ventral hernia repairs x 3, sinus surg, distal pancreatectomy and spleenectomy.nadine CATARACT Past Anesthesia/Blood Transfusion Reactions: Previous Problems w/ Anesthesia, Family History of Problems w/ Anesthesia Additional Past Anesthesia/Blood Transfusion Reaction / Comment(s): Sister N/V. ITCHING AND RASH AFTER EYE SURG 06/14/17.no problems with prior blood transfusions Past Psychological History: Anxiety, Depression Smoking Status: Former smoker Past Alcohol Use History: None Reported Past Drug Use History: None Reported - Past Family History Mother Additional Family Medical History / Comment(s): heart valve disease- at age 75 Father Family Medical History: Cancer Additional Family Medical History / Comment(s): prostate CA- at age 65 General Exam Limitations: no limitations General appearance: alert, in no apparent distress Head exam: Present: atraumatic, normocephalic, normal inspection Neck exam: Present: normal inspection, full ROM. Absent: tenderness, meningismus, lymphadenopathy Respiratory exam: Present: normal lung sounds bilaterally. Absent: respiratory distress, wheezes, rales, rhonchi, stridor Cardiovascular Exam: Present: regular rate, normal rhythm, normal heart sounds. Absent: systolic murmur, diastolic murmur, rubs, gallop, clicks GI/Abdominal exam: Present: soft, tenderness (Mild left-sided), normal bowel sounds. Absent: distended, guarding, rebound, rigid Back exam: Absent: CVA tenderness (R), CVA tenderness (L) Neurological exam: Present: alert Skin exam: Present: warm, dry, intact, normal color. Absent: rash Course Vital Signs 03/19/21 03/19/21 03/19/21 08:49 09:53 10:00 Temperature 98.1 F Pulse Rate 79 79 79 Respiratory 18 16 16 Rate Blood Pressure 136/82 132/71 132/71 O2 Sat by Pulse 100 98 98 Oximetry Medical Decision Making - Medical Decision Making CT is unremarkable. Patient has questional urinary tract infection was started on antibiotic as given adenosine by steroids from had blood cultures and full labs drawn. Patient also complains of some upset stomach will be discharged on Zofran, continuation of omeprazole. - Lab Data Result diagrams: 03/19/21 09:21 03/19/21 09:21 Lab Results 03/19/21 03/19/21 03/19/21 Range/Units 09:21 09:21 09:21 WBC 7.5 (3.8-10.6) k/uL RBC 4.49 (3.80-5.40) m/uL Hgb 14.1 (11.4-16.0) gm/dL Hct 41.3 (34.0-46.0) % MCV 92.0 (80.0-100.0) fL MCH 31.4 (25.0-35.0) pg MCHC 34.1 (31.0-37.0) g/dL RDW 14.6 (11.5-15.5) % Plt Count 435 (150-450) k/uL MPV 7.9 Neutrophils % 56 % Lymphocytes % 35 % Monocytes % 5 % Eosinophils % 3 % Basophils % 0 % Neutrophils # 4.2 (1.3-7.7) k/uL Lymphocytes # 2.6 (1.0-4.8) k/uL Monocytes # 0.3 (0-1.0) k/uL Eosinophils # 0.2 (0-0.7) k/uL Basophils # 0.0 (0-0.2) k/uL PT 10.9 (9.0-12.0) sec INR 1.0 (<1.2) APTT 23.2 (22.0-30.0) sec Sodium (137-145) mmol/L Potassium (3.5-5.1) mmol/L Chloride (98-107) mmol/L Carbon Dioxide (22-30) mmol/L Anion Gap mmol/L BUN (7-17) mg/dL Creatinine (0.52-1.04) mg/dL Est GFR (CKD-EPI)AfAm (>60 ml/min/1.73 sqM) Est GFR (CKD-EPI)NonAf (>60 ml/min/1.73 sqM) Glucose (74-99) mg/dL Plasma Lactic Acid Alex (0.7-2.0) mmol/L Calcium (8.4-10.2) mg/dL Total Bilirubin (0.2-1.3) mg/dL AST (14-36) U/L ALT (4-34) U/L Alkaline Phosphatase (38-126) U/L Total Protein (6.3-8.2) g/dL Albumin (3.5-5.0) g/dL Amylase (30-110) U/L Lipase (23-300) U/L Urine Color Light Yellow Urine Appearance Cloudy H (Clear) Urine pH 7.0 (5.0-8.0) Ur Specific [place] 1.009 (1.001-1.035) Urine Protein Negative (Negative) Urine Glucose (UA) Negative (Negative) Urine Ketones Trace H (Negative) Urine Blood Negative (Negative) Urine Nitrite Negative (Negative) Urine Bilirubin Negative (Negative) Urine Urobilinogen <2.0 (<2.0) mg/dL Ur Leukocyte Esterase Large H (Negative) Urine WBC 15 H (0-5) /hpf Ur Squamous Epith Cells 1 (0-4) /hpf Amorphous Sediment Occasional H (None) /hpf Urine Bacteria Rare H (None) /hpf Urine Mucus Rare H (None) /hpf 03/19/21 03/19/21 Range/Units 09:21 09:21 WBC (3.8-10.6) k/uL RBC (3.80-5.40) m/uL Hgb (11.4-16.0) gm/dL Hct (34.0-46.0) % MCV (80.0-100.0) fL MCH (25.0-35.0) pg MCHC (31.0-37.0) g/dL RDW (11.5-15.5) % Plt Count (150-450) k/uL MPV Neutrophils % % Lymphocytes % % Monocytes % % Eosinophils % % Basophils % % Neutrophils # (1.3-7.7) k/uL Lymphocytes # (1.0-4.8) k/uL Monocytes # (0-1.0) k/uL Eosinophils # (0-0.7) k/uL Basophils # (0-0.2) k/uL PT (9.0-12.0) sec INR (<1.2) APTT (22.0-30.0) sec Sodium 140 (137-145) mmol/L Potassium 4.0 (3.5-5.1) mmol/L Chloride 103 (98-107) mmol/L Carbon Dioxide 30 (22-30) mmol/L Anion Gap 7 mmol/L BUN 11 (7-17) mg/dL Creatinine 0.65 (0.52-1.04) mg/dL Est GFR (CKD-EPI)AfAm >90 (>60 ml/min/1.73 sqM) Est GFR (CKD-EPI)NonAf >90 (>60 ml/min/1.73 sqM) Glucose 105 H (74-99) mg/dL Plasma Lactic Acid Alex 1.0 (0.7-2.0) mmol/L Calcium 9.7 (8.4-10.2) mg/dL Total Bilirubin 0.8 (0.2-1.3) mg/dL AST 46 H (14-36) U/L ALT 30 (4-34) U/L Alkaline Phosphatase 87 (38-126) U/L Total Protein 7.6 (6.3-8.2) g/dL Albumin 4.7 (3.5-5.0) g/dL Amylase 61 (30-110) U/L Lipase 139 (23-300) U/L Urine Color Urine Appearance (Clear) Urine pH (5.0-8.0) Ur Specific [place] (1.001-1.035) Urine Protein (Negative) Urine Glucose (UA) (Negative) Urine Ketones (Negative) Urine Blood (Negative) Urine Nitrite (Negative) Urine Bilirubin (Negative) Urine Urobilinogen (<2.0) mg/dL Ur Leukocyte Esterase (Negative) Urine WBC (0-5) /hpf Ur Squamous Epith Cells (0-4) /hpf Amorphous Sediment (None) /hpf Urine Bacteria (None) /hpf Urine Mucus (None) /hpf Disposition Clinical Impression: Gastritis, UTI (urinary tract infection) Disposition: HOME SELF-CARE Condition: Stable Instructions (If sedation given, give patient instructions): Urinary Tract Infection in Women (ED) Additional Instructions: Please return to the Emergency Department if symptoms worsen or any other concerns. Prescriptions: Nitrofurantoin Monohyd/M-Cryst [Macrobid] 100 mg PO Q12HR #14 cap Omeprazole [PriLOSEC] 40 mg PO DAILY #14 cap Ondansetron Odt [Zofran Odt] 4 mg PO Q8HR PRN #10 tab PRN Reason: Nausea Is patient prescribed a controlled substance at d/c from ED?: No Referrals: Joni Lomeli [Primary Care Provider] - 1-2 days Karmen Connell MD [STAFF PHYSICIAN] - 1-2 days Time of Disposition: 10:58
--- NOTE | 2021-03-19 10:44 | CT ---
EXAMINATION TYPE: CT abdomen pelvis w con DATE OF EXAM: 03/19/2021 COMPARISON: 03/05/2015 HISTORY: Left upper quadrant pain and left groin pain. History of pancreatic cancer status post chemo therapy 2009 status post partial pancreatectomy splenectomy CT DLP: 849.2 mGycm Automated exposure control for dose reduction was used. TECHNIQUE: Helical acquisition of images was performed from the lung bases through the pelvis. CONTRAST: Performed without Oral Contrast and with IV Contrast, patient injected with 100 mL of Isovue 300. FINDINGS: The visualized lung bases are clear. There is surgical absence of the gallbladder. There is no biliary ductal dilatation. There are 3 smal l low-density lesions within the liver which were seen previously and most likely represent small hep atic cysts or possibly hemangioma. There is been no interval change. The patient is status post partial pancreatectomy and splenectomy. The kidneys excrete contrast promptly and symmetrically and there is no solid renal mass or hydroneph rosis. There is no retroperitoneal adenopathy or hemorrhage in the caliber of the abdominal aorta is normal. The bowel loops are normal in caliber and there is no evidence of bowel obstruction. There is diverti culosis of the colon without CT evidence of diverticulitis. There is no free intraperitoneal air or f luid. There are no inflammatory changes within the mesentery and there is no abdominal or pelvic absc ess. There is no pelvic adenopathy or free fluid. The rectum, urinary bladder and uterus appear normal The osseous structures and soft tissues are unremarkable. IMPRESSION: Postsurgical changes of cholecystectomy, partial pancreatectomy and splenectomy. Stable intrahepatic cysts. No significant abnormality seen. Etiology of the left upper quadrant pain and groin pain is in determinate.
[2021-03-19] MEDS ORDERED: cefTRIAXone IN SWFI 1,000 MG/10 ML SYRINGE IVP STA (10:57)
[2021-03-19] MEDS ORDERED: ACET/COD 300 MG/30 MG STARTER PACK 6 TAB BTL PO STA (10:57)
[2021-03-19] MEDS ORDERED: KETOROLAC 15 MG/ML 1 ML VIAL IVP STA (10:57)
[2021-03-19 11:52] VITALS: BP 133/77; PULSE 71; RESP 18; TEMP 97.8
== END 2021-03-19 11:51 | disposition home or self-care (01) ==
LOC: EC 08:47
DX: N39.0 Urinary tract infection, site not specified (principal); K29.70 Gastritis, unspecified, without bleeding; M06.9 Rheumatoid arthritis, unspecified; I10 Essential (primary) hypertension; J45.909 Unspecified asthma, uncomplicated; F32.9 Major depressive disorder, single episode, unspecified; G40.909 Epilepsy, unspecified, not intractable, without status epilepticus; K21.9 Gastro-esophageal reflux disease without esophagitis; F41.9 Anxiety disorder, unspecified; Z85.07 Personal history of malignant neoplasm of pancreas; Z87.891 Personal history of nicotine dependence; Z86.718 Personal history of other venous thrombosis and embolism; Z90.49 Acquired absence of other specified parts of digestive tract; Z90.411 Acquired partial absence of pancreas; Z90.81 Acquired absence of spleen; Z92.21 Personal history of antineoplastic chemotherapy
CPT/HCPCS: 36415; 80053; 82150; 83605; 83690; 85025; 85610; 85730; 81001; 87040; 87086; 74177; 99284; 96374; 96375 ×3; 96361; J2405; J0696; J1885; C9113; Q9967

== ENCOUNTER → 2021-03-29 | Outpatient (CLI) | payer MEDICARE ==
[2021-03-29 20:01] LABS: Gliadin AB IgA, Deaminated NEGATIVE (NEGATIVE); Gliadin AB IgA, Unit 2.4 U/mL; Gliadin AB IgG, Deaminated NEGATIVE (NEGATIVE)
== END | disposition home or self-care (01) ==
LOC: LABWHC1 14:16
PROVIDERS: ATTEND Nurse Practitioner
DX: R19.4 Change in bowel habit (principal)
CPT/HCPCS: 36415; 82656; 83516

== ENCOUNTER 2021-04-20 08:48 | Day surgery (SDC) | payer MEDICARE ==
[2021-04-16 13:25] VITALS: BMI 25.7
[~2021-04-20 08:48] MED LIST changes: +LIDOCAINE 1% (10MG/ML) FOR IV START INTRADERMA PRN; -LIDOCAINE 1% 20 ML VIAL (10MG/ML) FOR IV START INTRADERMA PRN; -LIDOCAINE 1% INJ 10MG/ML (20 ML MDV) ONE; -PROPOFOL 10 MG/ML 20 ML VIAL IV ONE
[2021-04-20 10:11] VITALS: RESP 16; TEMP 97.6
[2021-04-20] MEDS ORDERED: PROPOFOL 10 MG/ML 20 ML VIAL IV ONE (10:32)
[2021-04-20] MEDS ORDERED: LIDOCAINE 1% INJ 10MG/ML (20 ML MDV) ONE (10:32)
[2021-04-20] MEDS ORDERED: fentaNYL (PF) 50 MCG/ML 2 ML AMP ONE (10:32)
[2021-04-20] MEDS ORDERED: HYDROcodone/APAP 7.5-325MG 1 EACH TAB PO ONE (11:05)
--- NOTE | 2021-04-20 11:13 | P.PCN ---
Date of Procedure: 04/20/21 Description of Procedure: Brief history: 70-year-old female presenting for outpatient EGD and colonoscopy for evaluation of GERD and history of polyps. The patient reports prior EGD approximately 2 years ago with gastric polyps. Last colonoscopy about 7 years ago with polypectomy. She is on omeprazole 40 mg twice daily reports frequent symptoms of bloating, nausea, epigastric and left-sided abdominal pain, and chronic loose watery bowel movements. Procedure performed: Esophagogastroduodenoscopy with biopsy Colonoscopy with biopsy and polypectomy Estimated blood loss: Minimal. Preoperative diagnosis: GERD, history of polyps, last colonoscopy 5-7 years ago. Patient reports Anesthesia: MAC Procedure: After informed consent was obtained from the patient was brought into the endoscopy unit and IV sedation was administered by anesthesia under continuous monitoring. Initially upper endoscopy was done. The Olympus GF 190 video endoscope was inserted into the mouth and esophagus intubated without any difficulty and was gradually advanced into the stomach and duodenum and carefully examined. The bulb and second part of the duodenum appeared normal, with biopsies taken to rule out celiac sprue. The scope was then withdrawn into the stomach adequately insufflated with air and upon careful examination the antrum and body, cardia and fundus appeared normal, with biopsies taken to rule out Helicobacter pylori. Multiple polyps noted in the gastric body suggestive of fundic gland polyps with biopsies taken. The scope was then withdrawn into the esophagus. The GE junction was located at 39 cm to the incisors, with lower esophageal biopsies taken. It appeared regular with no erythema erosions or ulcerations. Rest of the esophagus appeared normal. Patient tolerated the procedure well. At this time the patient continued to remain sedation. Initial digital rectal examination was normal. Olympus CF 190 video colonoscope was then inserted into the rectum and gradually advanced to the cecum without any difficulty. Careful examination was performed as the scope was gradually being withdrawn. The prep was excellent. The cecum, ascending colon, transverse colon, descending colon, sigmoid colon and rectum appeared normal with biopsies taken of the right colon, left colon and a normal-appearing terminal ileum. A diminutive 2 mm splenic flexure polyp was removed with cold forcep polypectomy. Multiple small and large mouth diverticula noted in left colon. Retroflexion was performed in the rectum and no lesions were noted, Internal hemorrhoids noted. Patient tolerated the procedure well. Impression: 1. Multiple gastric polyps (fundic gland appearing). Biopsies of the duodenum, antrum and body, gastric polyps and lower esophagus. 2. Diminutive splenic flexure polyp removed with cold forcep polypectomy. Random biopsies taken of a normal-appearing terminal ileum, right and left colon. Internal hemorrhoids. Recommendations: Findings of this examination were discussed with the patient as well as Her family. Okay to resume diet. Okay to resume medications. Continue current medical management. Follow-up in the GI clinic for further management and results of biopsies as scheduled. Repeat colonoscopy in 7 years for colon polyps pending pathology from polypectomy.
[2021-04-20 11:44] VITALS: BP 130/78; PULSE 57
== END 2021-04-20 12:09 | disposition home or self-care (01) ==
LOC: ORWHC2ENDO 08:48
PROVIDERS: ATTEND Internal Medicine
DX: Z12.11 Encounter for screening for malignant neoplasm of colon (principal); K29.50 Unspecified chronic gastritis without bleeding; K31.7 Polyp of stomach and duodenum; D12.3 Benign neoplasm of transverse colon; K63.5 Polyp of colon; K64.8 Other hemorrhoids; K21.9 Gastro-esophageal reflux disease without esophagitis; Z87.891 Personal history of nicotine dependence; I10 Essential (primary) hypertension; R56.9 Unspecified convulsions; Z98.891 History of uterine scar from previous surgery; Z86.718 Personal history of other venous thrombosis and embolism; K57.30 Diverticulosis of large intestine without perforation or abscess without bleeding; F41.9 Anxiety disorder, unspecified; F32.9 Major depressive disorder, single episode, unspecified; Z85.07 Personal history of malignant neoplasm of pancreas; Z79.899 Other long term (current) drug therapy; Z98.890 Other specified postprocedural states; Z88.5 Allergy status to narcotic agent; Z88.8 Allergy status to other drugs, medicaments and biological substances
CPT/HCPCS: 88305; 45380; 43239; J2001; J3010; J2704

== ENCOUNTER → 2021-09-17 | Outpatient (CLI) | payer MEDICARE | END | disposition home or self-care (01) | LOC: LABWHC1 11:10 | PROVIDERS: ATTEND Psychiatry & Neurology Neurology | DX: G83.0 Diplegia of upper limbs (principal) | CPT/HCPCS: 36415 ==

== ENCOUNTER → 2021-11-08 | Outpatient (CLI) | payer MEDICARE ==
[2021-11-08 10:29] VITALS: BP 143/70; PULSE 72; RESP 18; TEMP 98
--- NOTE | 2021-11-08 17:49 | P.PN ---
Subjective Progress Note Date: 11/08/21 Principal diagnosis: This is follow-up visit for this patient, a 71 yr old female with a history of severe and chronic neck pain secondary to cervical disc bulges, anterolisthesis, facet arthropathy and multilevel neuroforaminal stenoses. Pain is dull, achy in the cervical spine but also sharp & shooting towards the bilateral shoulders and right upper extremity. Pain intensity is 9/ 10 and has been on & off for the last 3 years. Pain is provoked by movement. Pain is alleviated with physical therapy years ago (but doesn't participate in PT currently), chiropractics, home exercise stretching routine, oral medications, injections, heat and massage. Pt finds no relief with topical medications. MRI of the cervical spine reviewed with pt. Interventional pain procedures completed include an injection she received at [facility] by Dr Carranza, but patient does not recall the type of procedure. Patient is currently on Motrin, Baclofen. Patient denies any side effects of the medication(s), denies excessive drowsiness or sleepiness, denies suicidal ideation and reports that the current pain medication is helping to control the pain and improve activities of daily living. Patient denies any motor or sensory deficits. Patient denies any fever or night sweats, denies any change in the bowel movements or urination. Physical Examination: -Constitutional: Cooperative. Not in acute distress . -HEENT: Neck is supple. No lymphadenopathy. No thyromegaly. Normal thyroid size. Eyes: No ptosis , no icterus, no photophobia. ENT: No auditory deficits. Normal oropharynx. No Thrush. - Respiratory: Chest clear to auscultations bilaterally. No wheezing. No rhonchi. - Cardiovascular: Regular rate and rhythm. S1 / S2 , no S3 , no S4. - Gastrointestinal: Abdomen soft no tenderness. Bowel sounds positive in all four quadrants. No organomegaly. - Genitourinary: Deferred. - Neurologic: Cranial nerve II to XII intact. No focal neurological deficits. - Psychatric: Alert & oriented x 3. Matching mood & appropriate affect. Judgment and insight intact. - Lymphatic: No Lymphadenopathy. - Musculoskeltal: Cervical spine: Muscle bulk/ tone/ strength age appropriate in the bilateral upper extremities Facet loading test positive Distraction test positive. Lumbar spine: Motor bulk/ tone/ strength lower extremities , thigh and legs : 5/5 Deep tendon reflexes : Normal Knee Jerk. Normal Ankle Jerk . Lumbar Facet Loading Test positive Straight Leg Raise: positive at 30 degree right side/ left side Marquita test: positive right side / left side Range of motion: Range of motion in flexion of the lumbar spine <60 degrees Range of motion: Extension of the lumbar spine <20 degrees Severe tenderness over the Sacroiliac joint: right side / left side IMAGING: MRI Cervical Spine: Minor disc bulges of the C3-C4 & C4-C5; C6-C7 retrolisthesis; C4-C5 anterolisthesis; neuroforaminal stenosis of the C2-C3, C6- C7, C7-T1. Assessment and plan: Cervical disc protrusion, retrolisthesis, anterolisthesis with multilevel neuroforaminal stenoses Recommendation of GARIMA of the C4-C5. Other options discussed but pt is interested in an epidural injection. Chronic and current use of high-risk medication (Opioids). The patient was counseled about risk of opioid use, psychological risk associated with opioids and was orally counseled to not overuse , divert or sell medications. Pt is to store medication in a safe location. The patient is counseled against driving while using narcotic medications and also not to use alcohol or any illicit recreational drugs. Patient verbalized understanding that the lack of compliance will result in failure to renew narcotic prescription(s) as well as possible discharge from the clinic Diagnoses, prognosis and treatment options including but not limited to physical therapy, surgical interventions, interventional therapies and medication management including narcotics and adjuvant medication were discussed. All patient questions answered MAPS reviewed and it was appropriate. I have spent 31 minutes on patient care today. The time was used to review the medical records including relevant urine studies and Prescription history (MAPs), review of the available imaging, evaluation and examination of the patient, coordination of care with the medical staff and if applicable referring physicians, as well as creation of the medical record Objective - Vital Signs Vital signs: Vital Signs Temp 98 F 11/08/21 10:16 Pulse 72 11/08/21 10:16 Resp 18 11/08/21 10:16 BP 143/70 11/08/21 10:16 Pulse Ox 97 11/08/21 10:16 PQRS Measure Charge Sheet Mode of Arrival: Ambulatory - Pain Location Neck Non-Pharmacological Interventions: Chiropractic Treatment, Heat, Home Exercise, Massage, Position/Reposition, Stretching Pharmacological Interventions: Medication, PRN Medication, Topical Medication PQRS Narrative: Smoking Status Former smoker Blood Pressure 143/70 Pain Intensity [Neck] 2 Scale Used Numeric (1 - 10) Hx Alcohol Use (MH) No Home Medications: Ambulatory Orders Beclomethasone Dip 80 Mcg/Puff [Qvar 80 mcg] 1 puff INHALATION RT-DAILY 06/07/17 Losartan Potassium 50 mg PO DAILY 06/07/17 Folic Acid 1 mg PO DAILY 03/15/21 hydrOXYzine HCL 10 mg PO TID PRN 03/15/21 lamoTRIgine [LaMICtal] 150 mg PO BID 03/15/21 metHOTREXate sodium [Methotrexate] 25 mg PO WE 03/15/21 Omeprazole [PriLOSEC] 40 mg PO DAILY #14 cap 03/19/21 Lipase/Protease/Amylase [Creon Dr 36,000 Unit Capsule] 1 cap PO AC-TID 04/16/21 FLUoxetine HCL [PROzac] 60 mg PO DAILY 11/02/21 Ibuprofen [Motrin] 600 mg PO Q8HR PRN 11/02/21 Pyridostigmine [place] [Mestinon] 60 mg PO BID 11/02/21
== END | disposition home or self-care (01) ==
LOC: PNWHC3 08:56
PROVIDERS: ATTEND Physician Assistant Medical
DX: M50.20 Other cervical disc displacement, unspecified cervical region (principal); M43.12 Spondylolisthesis, cervical region; M48.02 Spinal stenosis, cervical region
CPT/HCPCS: 99211

== ENCOUNTER 2022-02-23 15:46 | Emergency (ER) | payer MEDICARE ==
[2022-02-23 16:02] VITALS: BP 146/86; PULSE 76; RESP 18; TEMP 98.2
[2022-02-23] MEDS ORDERED: ACETAMINOPHEN TAB 325 MG TAB PO STA (16:10)
--- NOTE | 2022-02-23 16:45 | XR ---
EXAMINATION TYPE: XR Hip LT and AP Pelvis DATE OF EXAM: 02/23/2022 COMPARISON: NONE HISTORY: Trauma and pain TECHNIQUE: A single AP view of the pelvis is obtained. Two views of the left hip are obtained. FINDINGS: There is no acute fracture/dislocation evident in the pelvis. The hip and sacroiliac join ts appear symmetric and unremarkable. The overlying soft tissue appears unremarkable. Two views of left hip show no acute fracture or dislocation. No focal lytic or sclerotic lesion seen in the proximal left femur. The overlying soft tissue is unremarkable. Metallic coils are present in the left hemiabdomen. IMPRESSION: There is no acute fracture or dislocation in the pelvis or left hip.
--- NOTE | 2022-02-23 16:52 | CT ---
EXAMINATION TYPE: CT brain cspine wo con DATE OF EXAM: 02/23/2022 COMPARISON: CT dated 11/29/2017 HISTORY: fall CT DLP: 1382.4 mGycm Automated exposure control for dose reduction was used. TECHNIQUE: CT scan of the head and cervical spine are performed without contrast. FINDINGS: Brain: Stable suspected right superior frontal and left retrocerebellar arachnoid cysts. No acute intracrani al hemorrhage. No gross acute cortical infarct. No midline shift or herniation. Unremarkable sella an d CP angles. No gross orbital abnormality. Mucosal thickening of the maxillary sinuses. Clear mastoid air cells. No definite acute calvarial bone fracture identified. Cervical spine: Mild retrolisthesis of C5-6 and C6 and C6 over C7 with anterolisthesis of C3 over C4, likely degenera tive. No definite vertebral body collapse or acute displaced fracture. Unremarkable atlantoaxial and atlantooccipital articulations. No facet dislocation or significant subluxation. Stable focal lucency within the posterior element of C4 without bone destruction, likely benign. Herbert ed degenerative changes seen at C5-6 and C6-7 levels with spinal canal stenosis. Multilevel facet ost eoarthropathy is also noted more on the left side. Bilateral C5-6 and C6-7 neuroforaminal stenosis. S lightly heterogeneous thyroid gland. No paraspinal lesion. Minimal right apical pulmonary fibrotic ch anges. IMPRESSION: 1. No acute intracranial posttraumatic sequela or acute calvarial bone fracture. 2. No acute traumatic bony injury of the cervical spine. 3. Degenerative changes of cervical spine as described above. 4. Other incidental findings as described above.
--- NOTE | 2022-02-23 17:10 | ED ---
Lower Extremity Injury HPI - General Chief Complaint: Extremity Injury, Lower Stated Complaint: Fall, Left Hip and leg injury Time Seen by Provider: 02/23/22 16:03 Source: patient Mode of arrival: wheelchair Limitations: no limitations - History of Present Illness Initial Comments: Patient is a 71-year-old female presenting with chief complaint of hip pain. Patient states that about 2 hours prior to presentation she fell when tripping on uneven concrete. She landed on the left hip. Patient states that she does believe that she hit her head on the way down. She is not on any blood thinners and denies loss of consciousness. Patient is able to bear weight and ambulate on the left side, but states it is accompanied by hip discomfort that radiates to the groin. Patient states that she has full range of motion and no loss of sensation. Patient denies nausea, vomiting, dizziness, neck pain or stiffness, vision or hearing changes, amnesia, numbness, tingling, weakness, back pain, saddle paresthesia. - Related Data Home Medications Medication Instructions Recorded Confirmed Losartan Potassium 50 mg PO DAILY 06/07/17 02/23/22 Folic Acid 1 mg PO DAILY 03/15/21 02/23/22 hydrOXYzine HCL 10 mg PO TID PRN 03/15/21 02/23/22 lamoTRIgine [LaMICtal] 150 mg PO BID 03/15/21 02/23/22 metHOTREXate sodium [Methotrexate] 25 mg PO WE 03/15/21 02/23/22 Lipase/Protease/Amylase [Creon Dr 1 cap PO AC-TID 04/16/21 02/23/22 36,000 Unit Capsule] FLUoxetine HCL [PROzac] 20 mg PO DAILY 11/02/21 02/23/22 FLUoxetine HCL [PROzac] 40 mg PO DAILY 02/23/22 02/23/22 Previous Rx's Medication Instructions Recorded Omeprazole [PriLOSEC] 40 mg PO DAILY #14 cap 03/19/21 Allergies Allergy/AdvReac Type Severity Reaction Status Date / Time theophylline Allergy Rapid Verified 02/23/22 17:09 Heart Rate,N/V,headache meperidine [From Demerol] AdvReac Nausea & Verified 02/23/22 17:09 Vomiting Review of Systems ROS Statement: Those systems with pertinent positive or pertinent negative responses have been documented in the HPI. ROS Other: All systems not noted in ROS Statement are negative. Past Medical History Past Medical History: Asthma, Cancer, Deep Vein Thrombosis (DVT), Eye Disorder, GERD/Reflux, Hypertension, Musculoskeletal Disorder, Osteoarthritis (OA), Rheumatoid Arthritis (RA), Seizure Disorder Additional Past Medical History / Comment(s): focal seizures-last seizure > year ago. Hx bronchitis. IBS. Pancreatic CA 2008-chemo x 6 months; DVT AFTER MAJOR SURGERY & then had another episode couple years later History of Any Multi-Drug Resistant Organisms: None Reported Past Surgical History: Bladder Surgery, Section, Cholecystectomy, Hernia Repair Additional Past Surgical History / Comment(s): EGD,colonoscopy,Bladder sling ,c sect x 3, ventral hernia repairs x 3, sinus surg, distal pancreatectomy and spleenectomy.nadine CATARACT Past Anesthesia/Blood Transfusion Reactions: Previous Problems w/ Anesthesia Additional Past Anesthesia/Blood Transfusion Reaction / Comment(s): Sister N/V. ITCHING AND RASH AFTER EYE SURG 06/14/17.no problems with prior blood transfusions Past Psychological History: Anxiety, Depression Smoking Status: Former smoker Past Alcohol Use History: None Reported Past Drug Use History: None Reported - Past Family History Mother Additional Family Medical History / Comment(s): heart valve disease- at age 75 Father Family Medical History: Cancer Additional Family Medical History / Comment(s): prostate CA- at age 65 General Exam Limitations: no limitations General appearance: alert, in no apparent distress Head exam: Present: atraumatic, normocephalic, normal inspection Eye exam: Present: normal appearance, PERRL, EOMI. Absent: scleral icterus, conjunctival injection, periorbital swelling Pupils: Present: normal accommodation Neck exam: Present: normal inspection Respiratory exam: Present: normal lung sounds bilaterally. Absent: respiratory distress, wheezes, rales, rhonchi, stridor Cardiovascular Exam: Present: regular rate, normal rhythm, normal heart sounds. Absent: systolic murmur, diastolic murmur, rubs, gallop, clicks Extremities exam: Present: normal inspection, full ROM. Absent: tenderness Left Hip exam: Present: normal inspection, full ROM. Absent: tenderness, shortening Neurological exam: Present: alert, oriented X3, CN II-XII intact Expanded Patient oriented to: Present: person, place, time Speech: Present: fluid speech Cranial nerves: EOM's Intact: Normal, Facial Sensation: Normal Motor strength exam: RLE: 5, LLE: 5 Eye Response: (4) open spontaneously Motor Response: (6) obeys commands Verbal Response: (5) oriented Angela Total: 15 Psychiatric exam: Present: normal affect, normal mood Skin exam: Present: warm, dry, intact, normal color. Absent: rash Course Vital Signs 02/23/22 15:58 Temperature 98.2 F Pulse Rate 76 Respiratory 18 Rate Blood Pressure 146/86 O2 Sat by Pulse 97 Oximetry Medical Decision Making - Medical Decision Making Patient is a 71-year-old female presenting with chief complaint of hip pain. Patient states that she fell after tripping on uneven concrete today landing on her left hip. Patient states that she also had her head, denies use of blood thinners or loss of consciousness. On exam patient is able to bear weight and ambulate on the affected side, she admits to pain with ambulation and weightbearing. She has full range of motion and full sensation. No focal neurological deficits. CT of brain and cervical spine without contrast is neg ative for any acute intracranial process or fracture of the cervical spine. X- ray of hip and pelvis shows no acute fracture or dislocation. I educated the patient on the findings. I informed her of supportive treatment with Motrin, Tylenol, icing, elevation. I suggested using a cane while injury is healing, patient states she has one at home she can use. Follow-up with PCP this week. Report back to ER if any worsening symptoms. I educated the patient on return parameters and answered all questions. Patient conveyed verbal understanding and agreed to the plan. I discussed this case with my attending Dr. Villaseñor. - Radiology Data Radiology results: report reviewed Computed tomography scan of brain and cervical spine without contrast: No acute intracranial posttraumatic sequelae are active [place] bone fracture. No acute traumatic bony injury of the cervical spine. Degenerative changes of the cervical spine. X-ray of hip and pelvis: No acute fracture dislocation in the pelvis or left hip Disposition Clinical Impression: Hip pain Disposition: HOME SELF-CARE Condition: Good Instructions (If sedation given, give patient instructions): Hip Pain (ED) Additional Instructions: Take Motrin and Tylenol as needed for pain control. May utilize ice, cane, and elevation for pain control. Follow-up with PCP this week. Report back to ER with any worsening symptoms. Is patient prescribed a controlled substance at d/c from ED?: No Referrals: Emili Lomeli [REGISTERED NURSE] - 03/02/22 Time of Disposition: 17:10
== END 2022-02-23 17:50 | disposition home or self-care (01) ==
LOC: EC 15:46
DX: M25.552 Pain in left hip (principal); J45.909 Unspecified asthma, uncomplicated; I10 Essential (primary) hypertension; Z87.891 Personal history of nicotine dependence; Z88.8 Allergy status to other drugs, medicaments and biological substances; Z88.5 Allergy status to narcotic agent
CPT/HCPCS: 70450; 72125; 73502; 99284

== ENCOUNTER → 2022-11-25 | Outpatient (CLI) | payer MEDICARE | END | disposition home or self-care (01) | LOC: LABWHC1 10:23 | PROVIDERS: ATTEND Nurse Practitioner Family | DX: K86.81 Exocrine pancreatic insufficiency (principal) | CPT/HCPCS: 82656 ==

== ENCOUNTER → 2023-03-08 | Outpatient (CLI) | payer MEDICARE ==
--- NOTE | 2023-03-09 08:10 | MR ---
EXAMINATION TYPE: MR brain wo/w con DATE OF EXAM: 03/08/2023 4:33 PM CLINICAL INDICATION:Female, 72 years old with history of R26.89,R29.2, M50.122; Focal Seizures, Foll ow-up to previous imaging COMPARISON: 02/24/2020 TECHNIQUE: Multi planar, multi sequence imaging was performed through the brain including: T1, T2, In version recovery, susceptibility weighted imaging and gradient echo imaging and Diffusion weighted im aging. The patient was then given intravenous contrast and multi planar, T1 fat-saturation images wer e obtained. IV Contrast: 7 cc Gadavist FINDINGS: The egan-white junctions, ventricular system, basal cisterns appear unremarkable. Left posterior cran ial fossa and right frontal lobe CSF attenuating areas which could represent arachnoid cysts. With th e posterior cranial fossa area possibly relating to the cisterna magna. Mesial temporal lobes are sym metric. Diffusion-weighted imaging shows no evidence of restricted diffusion to suggest acute/subacut e infarct. Intracranial arterial flow voids are maintained. Midline structures show no abnormality. S cattered foci of high T2 signal intensity are seen within the periventricular white matter. The susce ptibility weighted images do not reveal any evidence for micro-hemorrhage. After administration of ga dolinium, no abnormal enhancement is seen. Dolichoectasia of the basilar artery. A right frontal lobe vessel extends away from the lateral aspect of the lateral ventricle series 601 image 401. The bone marrow signal is within normal limits. Paranasal sinuses and mastoid air cells: Mild scattered paranasal sinus disease. Visualized orbits: Bilateral aphakia IMPRESSION: 1. Right frontal lobe developmental venous anomaly. 2. No evidence of intracranial mass, acute/subacute infarct, or abnormal enhancement. 3. Minimal nonspecific white matter changes, likely related to small vessel ischemic disease
== END | disposition home or self-care (01) ==
LOC: RADMRIMAIN 15:35
PROVIDERS: ATTEND Orthopaedic Surgery Orthopaedic Surgery of the Spine
DX: C25.9 Malignant neoplasm of pancreas, unspecified (principal); M50.122 Cervical disc disorder at C5-C6 level with radiculopathy; M43.12 Spondylolisthesis, cervical region; M25.78 Osteophyte, vertebrae; M50.322 Other cervical disc degeneration at C5-C6 level; M50.323 Other cervical disc degeneration at C6-C7 level; M50.123 Cervical disc disorder at C6-C7 level with radiculopathy; M26.89 Other dentofacial anomalies; M06.9 Rheumatoid arthritis, unspecified; J98.4 Other disorders of lung; M54.50 Low back pain, unspecified; G40.909 Epilepsy, unspecified, not intractable, without status epilepticus; M50.020 Cervical disc disorder with myelopathy, mid-cervical region, unspecified level; M48.02 Spinal stenosis, cervical region; M50.022 Cervical disc disorder at C5-C6 level with myelopathy; M50.023 Cervical disc disorder at C6-C7 level with myelopathy; R26.89 Other abnormalities of gait and mobility; R53.1 Weakness; R29.2 Abnormal reflex
CPT/HCPCS: 70553; A9585

== ENCOUNTER → 2023-12-14 | Outpatient (CLI) | payer MEDICARE ==
--- NOTE | 2023-12-14 12:04 | BD ---
EXAMINATION TYPE: Axial Bone Density DATE OF EXAM: 12/14/2023 CLINICAL HISTORY: 73 years old Female. ICD-10 CODE: M85.80 Height: 63.5in Weight: 165lb FRAX RISK QUESTIONS: Secondary Osteoporosis: Rheumatoid Arthritis: yes RISK FACTORS HISTORY OF: MEDICATIONS: EXAM MEASUREMENTS: Bone mineral densitometry was performed using the [employer] System. Bone mineral density as measured about the Lumbar spine is: ----- L1-L4(G/cm2): 1.069 T Score Values are as follows: ----- L1: -0.5 ----- L2: -1.0 ----- L3: -0.9 ----- L4: -1.3 ----- L1-L4: -0.9 Z Score Values are as follows: ----- L1: 0.9 ----- L2: 0.3 ----- L3: 0.5 ----- L4: 0.1 ----- L1-L4: 0.4 Bone mineral density has: Decreased -5.2% since study of: 02-03-16 Bone mineral density about the R hip (g/cm2): 0.887 Bone mineral density about the L hip (g/cm2): 0.883 T Score values are as follows: -----R Neck: -1.8 -----L Neck: -1.3 -----R Total: -1.0 -----L Total: -1.0 Z Score values are as follows: -----R Neck: -0.3 -----L Neck: 0.2 -----R Total: 0.4 -----L Total: 0.3 Bone mineral density has: Decreased -4.8% since study of: 02-03-16 FRAX%s: The graph provided illustrates a 14.5% chance for a major osteoporotic fx and a 3% chance for the hips probability for fx in 10 years time. IMPRESSION: Osteopenia (T Score between -2.5 and -1). There is slightly increased risk of fracture and the patient may be considered for treatment. Re-Screen 2-5 years. NOTE: T-SCORE=SD OF THE YOUNG ADULT MEAN.
--- NOTE | 2023-12-15 12:21 | MM ---
Reason for Exam: Screening (asymptomatic). Last screening mammogram was performed 12 month(s) ago. Patient History: Menarche at age 14. First Full-Term at age 30. Postmenopausal. Patient has history of breast feeding. Other cancer, age 57. Estrogen for 3 months from age 52 until age 52. Hormonal Contraceptives for 3 years from age 26 until age 29. 1993, Benign Cyst Aspiration on the right side. Risk Values: Thelma 5 year model risk: 1.9%. NCI Lifetime model risk: 5.4%. Prior Study Comparison: 01/02/2018 Bilateral Screening Mammogram, [facility]. 04/28/2020 Bilateral Screening Mammogram, [facility]. 12/13/2022 Bilateral MG 3D screening mammo w/cad, [facility]. Tissue Density: The breast tissue is heterogeneously dense. This may lower the sensitivity of mammography. Findings: Analyzed By CAD. There is no suspicious group of microcalcifications or new suspicious mass in either breast. Benign calcifications. Overall Assessment: Benign, BI-RAD 2 Management: Screening Mammogram of both breasts in 1 year. . Patient should continue monthly self-breast exams. A clinical breast exam by your physician is recommended on an annual basis. This exam should not preclude additional follow-up of suspicious palpable abnormalities. Note on Thelma scores and lifetime risk: 1. A Thelma score greater than 3% is considered moderate risk. If this is the case, consider specialist referral to assess eligibility for a risk reducing agent. 2. If overall lifetime risk for the development of breast cancer is 20% or higher, the patient may qualify for future screening with alternating mammogram and breast MRI. Electronically signed and approved by: Jv Schumacher M.D. Radiologis
== END | disposition home or self-care (01) ==
LOC: RADMAMWWP 09:53
PROVIDERS: ATTEND Family Medicine
DX: Z12.31 Encounter for screening mammogram for malignant neoplasm of breast (principal); M85.89 Other specified disorders of bone density and structure, multiple sites; M06.9 Rheumatoid arthritis, unspecified; Z78.0 Asymptomatic menopausal state
CPT/HCPCS: 77063; 77067; 77080

== ENCOUNTER → 2024-12-30 | Outpatient (CLI) | payer MEDICARE ==
[2024-12-30 12:41] LABS: Influenza A Not Detected (Not Detectd); Influenza B Not Detected (Not Detectd); RSV Not Detected (Not Detectd)
== END | disposition home or self-care (01) ==
LOC: LABWHC1 11:46
PROVIDERS: ATTEND Internal Medicine Gastroenterology
DX: R05.9 Cough, unspecified (principal)
CPT/HCPCS: 87636

== ENCOUNTER → 2024-12-30 | Outpatient (CLI) | payer MEDICARE ==
--- NOTE | 2024-12-30 13:18 | XR ---
EXAMINATION TYPE: XR chest 2V DATE OF EXAM: 12/30/2024 12:21 PM COMPARISON: None. CLINICAL INDICATION: Female, 74 years old with history of R05.9 COUGH, congestion wheezing asthmaa TECHNIQUE: XR chest 2V view(s) obtained. FINDINGS: The heart size is normal. The pulmonary vasculature is normal. There may be a small density adjacent to the cardiac apex. Short-term follow-up is recommended.. IMPRESSION: 1. No acute pulmonary process. 2. Possible small nodular density in the left lung base. Follow-up exam within 3 months is recommendmary duarte [facility], , 12/30/2024 1:16 PM
== END | disposition home or self-care (01) ==
LOC: RADXRMAIN 12:04
PROVIDERS: ATTEND Internal Medicine Gastroenterology
DX: R05.9 Cough, unspecified (principal)
CPT/HCPCS: 71046

== ENCOUNTER → 2025-02-03 | Outpatient (CLI) | payer MEDICARE ==
--- NOTE | 2025-02-03 15:00 | MM ---
Reason for Exam: Screening (asymptomatic). Last mammogram was performed 1 year(s) and 1 month(s) ago. Patient History: Menarche at age 14. First Full-Term at age 30. Postmenopausal. Patient has history of breast feeding. Estrogen for 3 months from age 52 until age 52. Hormonal Contraceptives for 3 years from age 26 until age 29. 1993, Benign Cyst Aspiration on the right side. Risk Values: Thelma 5 year model risk: 2.0%. NCI Lifetime model risk: 5.1%. Prior Study Comparison: 04/28/2020 Bilateral Screening Mammogram, [facility]. 12/13/2022 Bilateral MG 3D screening mammo w/cad, [facility]. 12/14/2023 Bilateral MG 3D screening mammo w/cad, [facility]. Tissue Density: The breasts are heterogeneously dense, which may obscure small masses. Findings: Analyzed By CAD. There is no suspicious group of microcalcifications or new suspicious mass in either breast. Overall Assessment: Benign, BI-RAD 2 Management: Screening Mammogram of both breasts in 1 year. . Patient should continue monthly self-breast exams. A clinical breast exam by your physician is recommended on an annual basis. This exam should not preclude additional follow-up of suspicious palpable abnormalities. Note on Thelma scores and lifetime risk: 1. A Thelma score greater than 3% is considered moderate risk. If this is the case, consider specialist referral to assess eligibility for a risk reducing agent. 2. If overall lifetime risk for the development of breast cancer is 20% or higher, the patient may qualify for future screening with alternating mammogram and breast MRI. [facility], , 02/03/2025 2:57 PM. Electronically signed and approved by: Wolfgang Adkins M.D. Radiologis
== END | disposition home or self-care (01) ==
LOC: RADMAMWWP 14:39
PROVIDERS: ATTEND Family Medicine
DX: Z12.31 Encounter for screening mammogram for malignant neoplasm of breast (principal); R92.333 Mammographic heterogeneous density, bilateral breasts; Z78.0 Asymptomatic menopausal state; Z92.0 Personal history of contraception
CPT/HCPCS: 77063; 77067

== ENCOUNTER → 2025-04-18 | Outpatient (CLI) | payer MEDICARE, OTHER ==
[2025-04-18 13:05] LABS: African American GFR (CKD) >90 (>60 ml/min/1.73 sqM); Blood Urea Nitrogen 15 mg/dL (7-17); Non-African American GFR(CKD) >90 (>60 ml/min/1.73 sqM)
--- NOTE | 2025-04-18 13:55 | CT ---
CT chest without contrast HISTORY: Abnormal chest x-ray. COMPARISON: CT chest abdomen pelvis dated 03/05/2015. TECHNIQUE: Multiple axial images are obtained through the chest without IV contrast. There are multiple bilateral pulmonary nodules. The largest nodule on the right is a stable right low er lobe nodule and measures approximately 5.3 mm. There are few stable sub-5 mm nodules in the right lung. There is a new 6.5 mm left lower lobe pulmonary nodule. There are a few scattered stable sub-4 mm nod ules in the left lung. There is no airspace consolidation. There is no abnormal interstitial density. There is no pleural effusion or pneumothorax. The great vessels chest are normal and there is no mediastinal, hilar or axillary adenopathy. Limited scanning through the upper abdomen reveals cholecystectomy but no other significant abnormali ty. There are no obstructive osseous lesions.. IMPRESSION: 1. Multiple bilateral pulmonary nodules, majority of which are stable including a 5.3 mm nodule in th e right lower lobe. 2. New 6.5 mm nodule in the left lower lobe. Malignancy is not entirely excluded and follow-up CT tho rax in 3 months is recommended to confirm stability. 3. No acute cardiopulmonary disease [facility], , 04/18/2025 1:52 PM
== END | disposition home or self-care (01) ==
LOC: RADCTMAIN 12:17
PROVIDERS: ATTEND Family Medicine
DX: R91.1 Solitary pulmonary nodule (principal); R93.89 Abnormal findings on diagnostic imaging of other specified body structures; R91.8 Other nonspecific abnormal finding of lung field
CPT/HCPCS: 82565; 84520; 71270; 36415; Q9967

== ENCOUNTER → 2025-05-29 | Outpatient (CLI) | payer MEDICARE, OTHER ==
--- NOTE | 2025-05-29 17:02 | US ---
EXAMINATION TYPE: US venous doppler duplex LE LT DATE OF EXAM: 05/29/2025 4:46 PM COMPARISON: NONE CLINICAL INDICATION: Female, 75 years old with history of R60.0 LOCALIZED EDEMA; left swollen leg TECHNIQUE: The lower extremity deep venous system is examined utilizing real time linear array sonog luci with graded compression, doppler sonography and color-flow sonography. Grayscale, color doppler , spectral doppler imaging performed of the deep veins of the lower extremities FINDINGS: SIDE PERFORMED: Left VESSELS IMAGED: Common Femoral Vein Deep Femoral Vein Greater Saphenous Vein * Femoral Vein Popliteal Vein Small Saphenous Vein * Proximal Calf Veins (* superficial vessels) Left Leg: Negative for DVT; There is normal flow, compressibility, vascular waveforms. 7.0cm Taveras s cyst seen. IMPRESSION: No evidence for deep vein thrombosis. [facility], , 05/29/2025 5:00 PM
== END | disposition home or self-care (01) ==
LOC: RADUSWWP 16:31
DX: R60.0 Localized edema (principal)